=== PATIENT | female | born 1960 | race Caucasian/White ===

== ENCOUNTER → 2016-08-21 | Outpatient (CLI) | payer OTHER ==
[~2016-08-21] MED LIST: CA C1TAB26 PO; CPR500T PO; HYDR1TAB8 OP; METR500T PO; NITR-65 PO; PREMARIN 0.9 MG
--- NOTE | 2016-08-22 15:18 | Diagnostic Imaging Report ---
EXAMINATION: Bilateral screening mammogram with a Computer Aided Detection (CAD) system. INDICATION: Screening. PERSONAL HISTORY: No current complaints stated on the questionnaire. COMPARISON: 01/02/2007. FINDINGS: The breasts are composed of heterogeneously dense parenchyma which may decrease mammographic sensitivity. Asymmetry along the upper aspect of the right breast is likely related to summation artifact of parenchyma. The left breast demonstrates no definite focal lesion. No suspicious calcification is seen. IMPRESSION: Dense breasts. Asymmetry along the upper aspect of the right breast. Focal compression view and bilateral ultrasound evaluation would be recommended. ACR BI-RADS Category 0: Incomplete. (Needs additional imaging evaluation). Result letter will be mailed to the patient. Note: At least 10% of breast cancer is not imaged by mammography. Dictated by: Dictated on workstation # [id number]
== END ==
LOC: RAD 12:36
PROVIDERS: ATTEND Nurse Practitioner Family
DX: Z12.31 Encounter for screening mammogram for malignant neoplasm of breast (principal); R92.8 Other abnormal and inconclusive findings on diagnostic imaging of breast
CPT/HCPCS: 77067

== ENCOUNTER → 2017-01-02 | Outpatient (CLI) | payer OTHER ==
--- NOTE | 2017-01-02 20:06 | Diagnostic Imaging Report ---
Right breast diagnostic mammogram. The current study was also evaluated with a Computer Aided Detection (CAD) system. Tomography is also performed. INDICATION: Asymmetry in the upper aspect of the right breast. FINDINGS: The asymmetry is persistent with no definitive underlying mass seen on the tomography evaluation; however, there is dense background parenchyma which could obscure an underlying lesion. IMPRESSION: Indeterminate persistent asymmetry in the upper aspect of the right breast. Ultrasound evaluation pending. ACR BI-RADS Category 0: Incomplete. (Needs additional imaging evaluation). Result letter will be mailed to the patient. Note: At least 10% of breast cancer is not imaged by mammography. Dictated by: Dictated on workstation # [id number]
--- NOTE | 2017-01-02 20:35 | Diagnostic Imaging Report ---
EXAMINATION: Bilateral breast ultrasound. INDICATION: Dense breasts and an asymmetry in the upper aspect of the right breast. FINDINGS: The four quadrants and retroareolar region of each breast were scanned with no underlying abnormality seen, bilaterally. IMPRESSION: Negative study. The asymmetry along the upper aspect of the right breast could relate to summation artifact of parenchyma. Reevaluation with the mammography when the patient is due for her bilateral mammogram in August 2017 is recommended. ACR BI-RADS Category 3: Probably benign findings. Result letter will be mailed to the patient. Note: At least 10% of breast cancer is not imaged by mammography. Dictated by: Dictated on workstation # [id number]
== END ==
LOC: RAD 12:54
PROVIDERS: ATTEND Nurse Practitioner Family
DX: N64.89 Other specified disorders of breast (principal)

== ENCOUNTER → 2017-04-27 | Outpatient (CLI) | payer SELFPAY ==
[~2017-04-27] MED LIST changes: +GADOBUTROL 7.5 MMOL/7.5 ML (GADAVIST) VIAL IV ONE
--- NOTE | 2017-04-27 09:32 | Diagnostic Imaging Report ---
PROCEDURE: MR imaging of the brain with and without contrast. TECHNIQUE: Multiplanar, multisequence MR imaging of the brain was performed with and without contrast. INDICATION: Chronic headaches. No comparison is available. FINDINGS: The diffusion series demonstrates no evidence of restriction or findings of acute ischemia. There is no MR evidence of acute intracranial hemorrhage. There are several small foci of subcortical T2 hyperintense signal within the frontal white matter. There is no significant periventricular T2 signal abnormality. Findings are compatible with minimal microvascular changes. There is no intracranial mass effect or shift. There is no hydrocephalus. There is no abnormal extra-axial fluid collection. The basilar cisterns are patent. The posterior fossa is unremarkable. Postcontrast imaging demonstrates no MR evidence of pathologic intracranial enhancement. The pituitary gland and pineal region appear normal. There is normal alignment of the craniocervical junction. The mastoid air cells appear clear. The paranasal sinuses demonstrates minimal mucosal thickening in the ethmoids. Orbital contents unremarkable. Expected arterial and dural venous sinus flow voids appear preserved. IMPRESSION: 1. No MR evidence of an acute intracranial abnormality. There is no evidence of acute ischemia, hemorrhage, mass effect or hydrocephalus. There is no pathologic intracranial enhancement. 2. There are several scattered small T2 hyperintense foci within the subcortical white matter of the frontal lobes. This has a microvascular distribution. Correlation as to any known vascular risk factors such as diabetes, hypertension, smoking or migraine headaches appreciated. Dictated by: Dictated on workstation # [id number]
== END ==
LOC: RAD 07:52
PROVIDERS: ATTEND Nurse Practitioner Family
DX: R90.82 White matter disease, unspecified (principal)
CPT/HCPCS: 70553

== ENCOUNTER → 2018-09-19 | Outpatient (CLI) | payer OTHER ==
[~2018-09-19] MED LIST changes: -GADOBUTROL 7.5 MMOL/7.5 ML (GADAVIST) VIAL IV ONE
--- NOTE | 2018-09-20 07:53 | Diagnostic Imaging Report ---
Digital mammogram. Bilateral screening with 3-D tomosynthesis and CAD. The study was compared to prior exams of 08/21/2016. At this time there are no current complaints. The current study was also evaluated with a Computer Aided Detection (CAD) system. FINDINGS: The fibroglandular tissue in both breasts is heterogeneously dense. This does limit the sensitivity of this exam. Overall, there does not appear to have been any significant change when compared to the prior study. No primary or secondary sign of malignancy is noted. IMPRESSION: 1. There is no radiographic evidence for malignancy. 2. The patient should have her annual bilateral screening mammogram on schedule in September of 2019. ACR BI-RADS Category 1: Negative. Result letter will be mailed to the patient. Note: At least 10% of breast cancer is not imaged by mammography. Dictated by: Dictated on workstation # [id number]
== END ==
LOC: RAD 08:02
PROVIDERS: ATTEND Family Medicine
DX: Z12.31 Encounter for screening mammogram for malignant neoplasm of breast (principal)
CPT/HCPCS: 77067

== ENCOUNTER 2018-11-29 16:30 | Emergency (ER) | payer BC, OTHER ==
[~2018-11-29] VITALS: Ht 167.7 cm; Wt 56.6 kg
[2018-11-29] MEDS ORDERED: LIDOCAINE 1% INJ 20 ML 20 ML VIAL ONE (16:36)
[2018-11-29] MEDS ORDERED: LIDOCAINE 2% 20 ML (XYLOCAINE) VIAL INJ ONE (16:45)
[2018-11-29] MEDS ORDERED: LIDOCAINE 1% INJ 20 ML 20 ML VIAL INJ ONE (16:45)
[2018-11-29] MEDS ORDERED: LORazepam 0.5 MG (ATIVAN) TABLET ONE (16:55)
[2018-11-29] MEDS ORDERED: LORazepam 0.5 MG (ATIVAN) TABLET PO STA (17:27)
--- NOTE | 2018-11-29 17:33 | ED Upper Extremity ---
General Chief Complaint: Laceration Stated Complaint: L HAND FINGER LAC Nursing Triage Note: Patient brought to ER via wheelchair with complaint of left 2nd finger laceration. Patient states she got her finger in a circular saw just [employer]PERVIS[employer]. Patient is pale in color, nauseated and states she feels faint. Patient taken to ER room 9 and placed supine on bed. Patient able to answer all questions appropriately. Nursing Sepsis Screen: No Definite Risk Source: patient Exam Limitations: no limitations History of Present Illness Date Seen by Provider: Nov 29, 2018 Time Seen by Provider: 17:28 Initial Comments Circular saw injury to the left pointer and middle finger. Tetanus is up-to-date. This occurred just prior to arrival. Onset: just prior to arrival Severity: moderate Pain/Injury Location: left 2nd finger, left 3rd finger Modifying Factors: Worse With Movement Allergies and Home Medications Allergies Coded Allergies: morphine (Unverified Allergy, Mild, 03/28/09) No Known Drug Allergies (Verified , 10/13/07) Home Medications Cephalexin 500 Mg Capsule, 500 MG PO QID Prescribed by: KWAME VELEZ on 11/29/18 1734 Hydrocodone/Acetaminophen 1 Each Tablet, 1 TAB PO Q6H Prescribed by: KWAME VELEZ on 11/29/18 1734 Patient Home Medication List Home Medication List Reviewed: Yes Review of Systems Constitutional: see HPI EENTM: see HPI Respiratory: no symptoms reported Cardiovascular: no symptoms reported Genitourinary: no symptoms reported Musculoskeletal: see HPI Skin: no symptoms reported Psychiatric/Neurological: No Symptoms Reported Past Thsvops-Oulxsm-Xulxxq Hx Patient Social History Alcohol Use: Denies Use Recreational Drug Use: No Smoking Status: Never a Smoker 2nd Hand Smoke Exposure: No Recent Foreign Travel: No Contact w/Someone Who Travel: No Recent Infectious Disease Expo: No Recent Hopitalizations: Yes Immunizations Up To Date Tetanus Booster (TDap): Less than 5yrs PED Vaccines UTD: Yes Seasonal Allergies Seasonal Allergies: No Past Medical History Surgeries: Yes (HYSTERECTOMY,CHOLECYSTECTOMY) Bladder Surgery, Gallbladder, Hysterectomy, Tubal Ligation Respiratory: No Cardiac: No 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 oz. 58.624759lj; 20.00 BMI Method: General Appearance: WD/WN, no apparent distress HEENT: PERRL/EOMI, normal ENT inspection Respiratory: no respiratory distress, no accessory muscle use Shoulder: normal inspection, non-tender Elbow/Forearm: normal inspection, non-tender Wrist: Yes normal inspection Hand: Left, laceration (Laceration through the ulnar side of the distal phalanx thirds the width of the fingertip. The radial one third is intact and the distal flap of tissue does have capillary refill though somewhat slow. Discussed the case with Dr. Cordova, I'll states this back in place, she'll follow up on Saturday with Dr. Herron. There is an additional 0.5 cm laceration to the middle phalanx palmar surface left middle finger anesthetized locally with 1% lidocaine without epinephrine, closed with 3 simple interrupted sutures. The pointer finger laceration was closed with 10 simple a ruptured sutures, this was anesthetized locally with lidocaine without epinephrine, 5-0 simple interrupted sutures) Neurologic/Psychiatric: alert, normal mood/affect, oriented x 3 Skin: normal color, warm/dry Progress/Results/Core Measures Results/Orders My Orders Orders - KWAME VELEZ APRN Lidocaine 2% Injection 20 Ml (Xylocaine (11/29/18 16:45) Lidocaine 1% Inj 20 Ml (Xylocaine 1% Inj (11/29/18 16:45) Lidocaine 1% Inj 20 Ml (Xylocaine 1% Inj (11/29/18 16:36) Lorazepam Tablet (Ativan Tablet) (11/29/18 16:55) Lorazepam Tablet (Ativan Tablet) (11/29/18 17:27) Medications Given in ED Current Medications Medications Dose Ordered Sig/Ramya Route Start Time Stop Time Status Last Admin Dose Admin Lidocaine HCl 20 ml ONCE ONCE INJ 11/29/18 16:45 11/29/18 16:46 DC 11/29/18 17:00 20 ML Vital Signs/I&O 11/29/18 16:30 Temp 36.4 Pulse 74 Resp 24 B/P (MAP) 96/51 (66) Pulse Ox 99 O2 Delivery Room Air Blood Pressure Mean: 66 Departure Communication (Admissions) Wounds were covered with Xeroform and tube gauze. Impression Primary Impression: Fingertip laceration Disposition: 01 HOME, SELF-CARE Condition: Stable Departure-Patient Inst. Decision time for Depature: 17:31 Referrals: TRESA PITTS MD (PCP/Family) Primary Care Physician KULWINDER CORDOVA MD, MARK E DO Patient Instructions: Laceration Repair With Stitches (DC) Add. Discharge Instructions: 1. Go to [address] Saturday at [address] Cordova's nurse Sandrine on Saturday at 8 AM to tell her he wanted you to be seen at 1 PM on Saturday. Tell her you were in ER and we spoke directly with him. Phone number is [phone] 2. Keep the dressing on at all times until then. Keep it clean and dry. Antibiotics and pain medication as directed. Scripts Hydrocodone/Acetaminophen ([place] 5-325 Tablet) 1 Each Tablet 1 TAB PO Q6H for Pain MDD 10 TABS for 7 Days, #20 TAB Prov: KWAME VELEZ APRN 11/29/18 Cephalexin (Keflex) 500 Mg Capsule 500 MG PO QID, #28 CAP Prov: KWAME VELEZ APRN 11/29/18 Copy Copies To 1: KULWINDER CORDOVA MD; KRISTOFER HERRON PETER J APRN Nov 29, 2018 17:33
[2018-11-29] MEDS ORDERED: CEPH-507 PO (17:34)
[2018-11-29] MEDS ORDERED: HYDR-4226 PO (17:34)
[2018-11-29] MEDS ORDERED: RX-AMOX/CLAV. (AUGMENTIN) 500MG TAB PPK#2 PO STA (17:43)
[2018-11-29] MEDS ORDERED: RX-HYDROCODONE/APAP 5/325 MG #4 TAB PK PO PRN (17:45)
[2018-11-29] MEDS ORDERED: AUGMENTIN 875 MG TAB (AMOXICILLIN/CLAVULANATE) PO SCH (17:45)
[2018-11-29 18:07] VITALS: BP 132/71
--- NOTE | 2018-11-29 18:26 | Diagnostic Imaging Report ---
INDICATION: Finger injury. COMPARISON: None. EXAMINATION: Three views of the left second and third digits were obtained. FINDINGS: There has been amputation of the tuft of the second digit left hand. There is soft tissue injury of the third and second digits. No foreign body is seen. 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 No intra-articular involvement identified. Dictated by: Dictated on workstation # [id number]
== END 2018-11-29 18:10 | disposition home or self-care (01) ==
LOC: EDUNIT# 16:30 → ER 16:31
DX: S61.211A Laceration without foreign body of left index finger without damage to nail, initial encounter (principal); S61.213A Laceration without foreign body of left middle finger without damage to nail, initial encounter; Z98.51 Tubal ligation status; Z90.710 Acquired absence of both cervix and uterus; Z88.5 Allergy status to narcotic agent; W27.0XXA Contact with workbench tool, initial encounter
CPT/HCPCS: 12001; 73140

== ENCOUNTER → 2019-08-04 | Outpatient (CLI) | payer BC ==
[~2019-08-04] MED LIST changes: +CEPH-507 PO; +HYDR-4226 PO
--- NOTE | 2019-08-04 18:07 | Diagnostic Imaging Report ---
INDICATION: Left elbow swelling. TIME OF EXAM: 05:52 p.m. FINDINGS: Three views of the left elbow were obtained. Alignment is normal. Joint spaces are well maintained. No fracture, dislocation, or effusion is seen. IMPRESSION: No acute bony abnormality is identified. Dictated by: Dictated on workstation # [id number]
== END ==
LOC: RAD 16:55
PROVIDERS: ATTEND Nurse Practitioner Family
DX: M25.422 Effusion, left elbow (principal)
CPT/HCPCS: 73080

== ENCOUNTER 2019-08-14 08:00 | Outpatient (RCR) | payer BC ==
[~2019-08-14] VITALS: Ht 167.7 cm; Wt 60.9 kg
== END 2019-08-14 14:21 | disposition home or self-care (01) ==
LOC: PREOP 08:00
PROVIDERS: ATTEND Surgery
DX: Z01.812 Encounter for preprocedural laboratory examination (principal); Z11.59 Encounter for screening for other viral diseases; K58.9 Irritable bowel syndrome, unspecified; R19.7 Diarrhea, unspecified
CPT/HCPCS: 87635

== ENCOUNTER 2019-08-18 08:49 | Day surgery (SDC) | payer BC ==
[2019-08-18] MEDS ORDERED: LACTATED RINGERS 1,000 ML IV ONE (08:51)
[2019-08-18] MEDS ORDERED: LACTATED RINGERS 1,000 ML IV STA (08:56)
--- OUTSIDE RECORDS SUMMARY | 2019-08-18 08:58 | XMS REPORT ---
Author Author Pallavi Anderson Doctor Organization [facility] Address Unknown Phone Unavailable Care Team Providers Care Medical Radiation Dosimetrist Name Role Phone Migration, Doctor Unavailable Unavailable PROBLEMS Type Condition ICD9-CM Code PZO80-AT Code Onset Dates Condition S tatus SNOMED Code Problem Abnormality of right breast on screening mammogram R92.8 Active [id number] ALLERGIES No Information ENCOUNTERS Encounter Location Date Diagnosis [facility] [address] [address] Oct, [facility] [address] [address] Sep, Well woman exam with routine gynecologic al exam Z01.419 ; Screening for breast cancer Z12.31 and Screening for osteoporosis Z13.820 [facility] [address] [address] Aug, Overweight E66.3 [facility] [address] [id number] July, Dental examination Z01.20 [facility] [address] [address] July, Overweight E66.3 [facility] [address] [address] Jun, Overweight E66.3 [facility] [address] [address] Jun, [facility] [address] [address] Jun, [facility] [address] [address] Jun, [facility] [address] [address] Apr, [facility] [address] [address] Apr, New onset headache R51 [facility] [address] [address] Apr, New onset headache R51 [facility] [address] [address] 24 Dec, 2016 [facility] [address] [address] Dec, Right ankle swelling M25.471 [place] [address] [address] 28 Nov, 2016 Abnormality of right breast on screening mammogram R92.8 [place] [address] [address] 26 Nov, 2016 Encounter for immunization Z23 ; Right a nkle swelling M25.471 ; Epigastric pain R10.13 ; Lower abdominal pain R10.30 and Abnormality of right breast on screening mammogram R92.8 [facility] [address] [id number] Oct, Dental caries K02.9 [place] [address] [address] Aug, Abnormality of right breast on screening mammogram R92.8 [facility] [address] [id number] July, Dental examination Z01.20 [facility] [address] [address] July, [facility] [address] [address] July, General medical exam Z00.00 ; Routine gy necological examination Z01.419 ; Screening breast examination Z12.39 and Abdominal fullness R19.8 [facility] [address] [id number] May, Encounter for dental examination Z01.20 [place] [address] [address] Apr, General medical exam Z00.00 ; Need for i mmunization with diphtheria, tetanus, and poliovirus vaccine Z23 ; Acute non-recurrent maxillary sinusitis J01.00 ; Pain of left sacroiliac joint M53.3 ; Upper respiratory tract infection, unspecified type J06.9 and Encounter for immunization Z23 [facility] [address] [id number] [place] [id number] Oct, Dental examination Z01.20 and Dental car ies K02.9 [place] [address] [address] Jun, Encounter for gynecological examination Z01.419 and Screening breast examination Z12.39 [place] [address] [address] May, Irritable bowel syndrome without diarrhe a K58.9 [place] [address] [address] May, General medical exam Z00.00 and Right fo ot pain M79.671 [place] [address] [address] May, General medical exam Z00.00 and Right fo ot pain M79.671 [place] [address] [address] Dec, Allergic rhinitis J30.9 ; Encounter for immunization Z23 and Right foot pain M79.671 [place] [address] [address] Jun, [place] [address] [address] Jun, [place] [address] [address] Jan, [place] [address] [address] Jan, [place] [address] [place] [address] Dec, [facility] [address] [facility] [id number] [place] [address] Dec, [facility] [address] [id number] [place] [address] July, [facility] [address] [id number] [place] [address] Jun, [facility] [address] [id number] [place] [address] Jun, [facility] [address] [id number] [place] [address] Jun, [facility] [address] [id number] [place] [address] Jun, [facility] [address] [id number] [place] [address] Jun, [facility] [address] [id number] [place] [address] May, [facility] [address] [id number] [place] [address] May, [facility] [address] [id number] [place] [address] Jan, [facility] [address] [id number] [place] [address] Jan, [facility] [address] [id number] [place] [address] Jan, [facility] [address] [id number] [place] [address] Jan, [facility] [address] [id number] [place] [address] Jan, [facility] [address] [id number] [place] [address] Jan, [facility] [address] [id number] [place] [address] Jan, [facility] [address] [id number] [place] [address] Jan, [facility] [address] [id number] [place] [address] Jan, [facility] [address] [id number] [place] [address] Jan, [facility] [address] [id number] [place] [address] Jan, [facility] [address] [id number] [place] [address] Jan, [facility] [address] [id number] [place] [address] Jan, [facility] [address] [id number] [place] [address] Dec, [facility] [address] [place] [id number] [place] [address] Aug, [facility] [address] [id number] [place] [address] Mar, [facility] [address] [id number] [place] [address] Feb, [facility] [address] [place] [id number] [place] [address] Feb, [facility] [address] [place] [id number] [place] [address] Feb, [facility] [address] [id number] [place] [address] 21 Feb, 2012 [facility] [address] [id number] [place] [address] 18 Feb, 2012 [facility] [address] [place] [id number] [place] [address] 17 Feb, 2012 [facility] [address] [id number] [place] [address] 17 Feb, 2012 [facility] [address] [id number] [place] [address] Sep, [facility] [address] [place] [id number] [place] [address] Sep, [facility] [address] [place] [id number] [place] [address] Sep, [facility] [address] [place] [id number] [place] [address] May, [facility] [address] [place] [id number] [place] [address] May, [facility] [address] [place] [id number] [place] [address] May, [facility] [address] [place] [id number] [place] [address] Apr, [facility] [address] [place] [id number] [place] [address] Apr, [facility] [address] [place] [id number] [place] [address] Mar, [facility] [address] [place] [id number] [place] [address] Mar, [facility] [address] [place] [id number] [place] [address] Mar, [facility] [address] [place] [id number] [place] [address] Mar, [facility] [address] [place] [id number] [place] [address] Jan, [facility] [address] [place] [id number] [place] [address] Dec, [facility] [address] [place] [id number] [place] [address] Dec, [facility] [address] [place] [id number] [place] [address] Dec, IMMUNIZATIONS No Known Immunizations SOCIAL HISTORY Never Assessed REASON FOR VISIT PLAN OF CARE VITAL SIGNS MEDICATIONS Unknown Medications RESULTS No Results PROCEDURES No Known procedures INSTRUCTIONS MEDICATIONS ADMINISTERED No Known Medications MEDICAL (GENERAL) HISTORY Type Description Date Medical History pancreatitis Medical History diverticulitis Medical History Herpes simplex Viral Warts Medical History Unspecified hepatitis Surgical History Hysterectomy Surgical History Bladder sling/repair Surgical History Cholecysectomy Surgical History Colonoscopy told to repeat in 10 years 2 012 Hospitalization History Diverticulitis hospitalized x 1 week 12/2007
--- OUTSIDE RECORDS SUMMARY | 2019-08-18 08:58 | XMS REPORT ---
Author Author Pallavi Anderson Doctor Organization [facility] Address Unknown Phone Unavailable Care Team Providers Care Performance Improvement Consultant Name Role Phone Migration, Doctor Unavailable Unavailable PROBLEMS Type Condition ICD9-CM Code GIZ02-DT Code Onset Dates Condition S tatus SNOMED Code Problem Abnormality of right breast on screening mammogram R92.8 Active [id number] ALLERGIES No Information ENCOUNTERS Encounter Location Date Diagnosis [facility] [address] [facility] [id number] [address] [place] [address] Oct, [facility] [address] [facility] [id number] [address] [place] [address] Sep, Well woman exam with routine gynecological exam Z01.419 ; Screening for breast cancer Z12.31 and Screening for osteoporosis Z13.820 [facility] [address] [facility] [id number] [address] [place] [address] Aug, Overweight E66.3 [facility] [address] [facility] [id number] [address] [place] [id number] July, Dental examination Z01.20 [facility] [address] [facility] [id number] [address] [place] [address] July, Overweight E66.3 [facility] [address] [facility] [id number] [address] [place] [address] Jun, Overweight E66.3 [facility] [address] [facility] [id number] [address] [place] [address] Jun, [facility] [address] [facility] [id number] [address] [place] [address] Jun, [facility] [address] [facility] [id number] [address] [place] [address] Jun, [facility] [address] [place] [id number] [address] [place] [address] Apr, [facility] [address] [id number] [address] [place] [address] Apr, New onset headache R51 [facility] [address] [id number] [address] [place] [address] Apr, New onset headache R51 [facility] [address] [id number] [address] [place] [address] Dec, [facility] [address] [id number] [address] [place] [address] Dec, Right ankle swelling M25.471 [facility] [address] [id number] [address] [place] [address] 28 Nov, 2016 Abnormality of right breast on screening mammogram R92.8 [place] [address] [id number] [address] [place] [address] 26 Nov, 2016 Encounter for immunization Z 23 ; Right ankle swelling M25.471 ; Epigastric pain R10.13 ; Lower abdominal pain R10.30 and Abnormality of right breast on screening mammogram R92.8 [facility] [address] [id number] [address] [place] [id number] Oct, Dental caries K02.9 [facility] [address] [id number] [address] [place] [address] Aug, Abnormality of right breast on screening mammogram R92.8 [facility] [address] [id number] [address] [place] [id number] July, Dental examination Z01.20 [facility] [address] [id number] [address] [place] [address] July, [facility] [address] [id number] [address] [place] [address] July, General medical exam Z00.00 ; Routine gynecological examination Z01.419 ; Screening breast examination Z12.39 and Abdominal fullness R19.8 [facility] [address] [id number] [address] [place] [address] [id number] May, Encounter for dental examina tion Z01.20 [facility] [address] [facility] [id number] [address] [place] [address] Apr, General medical exam Z00.00 ; Need for immunization with diphtheria, tetanus, and poliovirus vaccine Z23 ; Acute non-recurrent maxillary sinusitis J01.00 ; Pain of left sacroiliac joint M53.3 ; Upper respiratory tract infection, unspecified type J06.9 and Encounter for immunization Z23 [facility] [address] [id number] [address] [place] [address] [id number] Oct, Dental examination Z01.20 an d Dental caries K02.9 [facility] [address] [facility] [id number] [address] [place] [address] Jun, Encounter for gynecological examination Z01.419 and Screening breast examination Z12.39 [place] [address] [facility] [id number] [address] [place] [address] May, Irritable bowel syndrome wit hout diarrhea K58.9 [place] [address] [facility] [id number] [address] [place] [address] May, General medical exam Z00.00 and Right foot pain M79.671 [place] [address] [place] [id number] [address] [place] [address] 17 May, 2015 General medical exam Z00.00 and Right foot pain M79.671 [place] [id number] [facility] [id number] [address] [place] [address] Dec, Allergic rhinitis J30.9 ; En counter for immunization Z23 and Right foot pain M79.671 [facility] [address] [facility] [id number] [address] [place] [address] 14 Jun, 2014 [place] [address] [facility] [id number] [address] [place] [address] Jun, [facility] [address] [id number] [address] [place] [address], [place] [phone] Jan, [facility] [address] [id number] [address] [place] [address], [place] [phone] Jan, [facility] [address] [id number] [address] [place] [address], [place] [phone] Dec, [facility] [address] [id number] [address] [place] [address], [place] [phone] Dec, [facility] [address] [id number] [address] [place] [address], [place] [phone] July, [facility] [address] [id number] [address] [place] [address], [place] [phone] Jun, [facility] [address] [id number] [address] [place] [address], [place] [phone] Jun, [facility] [address] [id number] [address] [place] [address], [place] [phone] Jun, [facility] [address] [id number] [address] [place] [address], [place] [phone] Jun, [facility] [address] [id number] [address] [place] [address], [place] [phone] Jun, [facility] [address] [id number] [address] [place] [address], [place] [phone] May, [facility] [address] [id number] [address] [place] [address], [place] [phone] May, [facility] [address] [id number] [address] [place] [address], [place] [phone] Jan, [facility] [address] [id number] [address] [place] [address], [place] [phone] Jan, [facility] [address] [id number] [address] [place] [address], [place] [phone] Jan, [facility] [address] [id number] [address] [place] [address], [place] [phone] Jan, [facility] [address] [id number] [address] [place] [address], [place] [phone] Jan, [facility] [address] [id number] [address] [place] [address], [place] [phone] Jan, [facility] [address] [id number] [address] [place] [address], [place] [phone] Jan, [facility] [address] [id number] [address] [place] [address], [place] [phone] Jan, [facility] [address] [id number] [address] [place] [address], [place] [phone] Jan, [facility] [address] [id number] [address] [place] [address], [place] [phone] Jan, [facility] [address] [id number] [address] [place] [address], [place] [phone] Jan, [facility] [address] [id number] [address] [place] [address], [place] [phone] Jan, [facility] [address] [id number] [address] [place] [address], [place] [phone] Jan, [facility] [address] [id number] [address] [place] [address], [place] [phone] Dec, [facility] [address] [id number] [address] [place] [address], [place] [phone] Aug, [facility] [address] [id number] [address] [place] [address], [place] [phone] Mar, [facility] [address] [id number] [address] [place] [address], [place] [phone] Feb, [facility] [address] [id number] [address] [place] [address], [place] [phone] Feb, [facility] [address] [id number] [address] [place] [address], [place] [phone] Feb, [facility] [address] [id number] [address] [place] [address], [place] [phone] Feb, [facility] [address] [id number] [address] [place] [address], [place] [phone] Feb, [facility] [address] [id number] [address] [place] [address], [place] [phone] Feb, [facility] [address] [id number] [address] [place] [address], [place] [phone] Feb, [facility] [address] [id number] [address] [place] [address], [place] [phone] Sep, [facility] [address] [id number] [address] [place] [address], [place] [phone] Sep, [facility] [address] [id number] [address] [place] [address], [place] [phone] Sep, [facility] [address] [id number] [address] [place] [address], [place] [phone] May, [facility] [address] [id number] [address] [place] [address], [place] [phone] May, [facility] [address] [id number] [address] [place] [address], [place] [phone] May, [facility] [address] [id number] [address] [place] [address], [place] [phone] Apr, [facility] [address] [id number] [address] [place] [address], [place] [phone] Apr, [facility] [address] [id number] [address] [place] [address], [place] [phone] Mar, [facility] [address] [id number] [address] [place] [address], [place] [phone] Mar, [facility] [address] [id number] [address] [place] [address], [place] [phone] Mar, [facility] [address] [id number] [address] [place] [address], [place] [phone] Mar, [facility] [address] [id number] [address] [place] [address] Jan, [facility] [address] [facility] [id number] [address] [place] [id number] Dec, [facility] [address] [facility] [id number] [address] [place] [address] Dec, [facility] [address] [facility] [id number] [address] [place] [address] Dec, IMMUNIZATIONS No Known Immunizations SOCIAL HISTORY Never Assessed REASON FOR VISIT PLAN OF CARE VITAL SIGNS Weight 135.38 lbs 2011-09-17 Temperature 98.6 degrees Fahrenheit 2011-09-17 Heart Rate 68 bpm 2011-09-17 Respiratory Rate 16 2011-09-17 Blood pressure systolic 110 mmHg 2011-09-17 Blood pressure diastolic 76 mmHg 2011-09-17 MEDICATIONS Unknown Medications RESULTS No Results PROCEDURES Procedure Date Ordered Result Body Site RHEUMATOID FACTOR, QUANT September 17, 2011 VENIPUNCT, ROUTINE* September 17, 2011 INSTRUCTIONS MEDICATIONS ADMINISTERED No Known Medications MEDICAL [...]
--- OUTSIDE RECORDS SUMMARY | 2019-08-18 08:58 | XMS REPORT ---
Author Author Pallavi Anderson Doctor Organization [facility] Address Unknown Phone Unavailable Care Team Providers Care Special Programs Director Name Role Phone Migration, Doctor Unavailable Unavailable PROBLEMS Type Condition ICD9-CM Code CWW65-AO Code Onset Dates Condition S tatus SNOMED Code Problem Abnormality of right breast on screening mammogram R92.8 Active [id number] ALLERGIES No Information ENCOUNTERS Encounter Location Date Diagnosis [facility] [address] [address] Oct, [facility] [address] [address] Sep, Well woman exam with routine gynecologic al exam Z01.419 ; Screening for breast cancer Z12.31 and Screening for osteoporosis Z13.820 [facility] [address] [address] Aug, Overweight E66.3 [facility] [address] [id number] July, Dental examination Z01.20 [facility] [address] [address] July, Overweight E66.3 [facility] [address] [address] Jun, Overweight E66.3 [facility] [address] [address] Jun, [facility] [address] [address] Jun, [facility] [address] [address] Jun, [facility] [address] [address] Apr, [facility] [address] [address] Apr, New onset headache R51 [facility] [address] [address] Apr, New onset headache R51 [facility] [address] [address] 24 Dec, 2016 [facility] [address] [address] Dec, Right ankle swelling M25.471 [place] [address] [address] 28 Nov, 2016 Abnormality of right breast on screening mammogram R92.8 [place] [address] [address] 26 Nov, 2016 Encounter for immunization Z23 ; Right a nkle swelling M25.471 ; Epigastric pain R10.13 ; Lower abdominal pain R10.30 and Abnormality of right breast on screening mammogram R92.8 [facility] [address] [id number] Oct, Dental caries K02.9 [place] [address] [address] Aug, Abnormality of right breast on screening mammogram R92.8 [facility] [address] [id number] July, Dental examination Z01.20 [facility] [address] [address] July, [facility] [address] [address] July, General medical exam Z00.00 ; Routine gy necological examination Z01.419 ; Screening breast examination Z12.39 and Abdominal fullness R19.8 [facility] [address] [id number] May, Encounter for dental examination Z01.20 [place] [address] [address] Apr, General medical exam Z00.00 ; Need for i mmunization with diphtheria, tetanus, and poliovirus vaccine Z23 ; Acute non-recurrent maxillary sinusitis J01.00 ; Pain of left sacroiliac joint M53.3 ; Upper respiratory tract infection, unspecified type J06.9 and Encounter for immunization Z23 [facility] [address] [facility] [place] [id number] Oct, Dental examination Z01.20 and Dental car ies K02.9 [place] [address] [address] Jun, Encounter for gynecological examination Z01.419 and Screening breast examination Z12.39 [place] [address] [address] May, Irritable bowel syndrome without diarrhe a K58.9 [place] [address] [address] May, General medical exam Z00.00 and Right fo ot pain M79.671 [place] [address] [address] May, General medical exam Z00.00 and Right fo ot pain M79.671 [place] [address] [address] Dec, Allergic rhinitis J30.9 ; Encounter for immunization Z23 and Right foot pain M79.671 [place] [address] [address] Jun, [place] [address] [address] Jun, [place] [address] [address] Jan, [place] [address] [address] Jan, [place] [address] [place] [address] Dec, [facility] [address] [facility] [id number] [place] [address] Dec, [facility] [address] [id number] [place] [address] July, [facility] [address] [id number] [place] [address] Jun, [facility] [address] [id number] [place] [address] Jun, [facility] [address] [id number] [place] [address] Jun, [facility] [address] [id number] [place] [address] Jun, [facility] [address] [id number] [place] [address] Jun, [facility] [address] [id number] [place] [address] May, [facility] [address] [id number] [place] [address] May, [facility] [address] [id number] [place] [address] Jan, [facility] [address] [id number] [place] [address] Jan, [facility] [address] [id number] [place] [address] Jan, [facility] [address] [id number] [place] [address] Jan, [facility] [address] [id number] [place] [address] Jan, [facility] [address] [id number] [place] [address] Jan, [facility] [address] [id number] [place] [address] Jan, [facility] [address] [id number] [place] [address] Jan, [facility] [address] [id number] [place] [address] Jan, [facility] [address] [id number] [place] [address] Jan, [facility] [address] [id number] [place] [address] Jan, [facility] [address] [id number] [place] [address] Jan, [facility] [address] [id number] [place] [address] Jan, [facility] [address] [id number] [place] [address] Dec, [facility] [address] [place] [id number] [place] [address] Aug, [facility] [address] [id number] [place] [address] Mar, [facility] [address] [id number] [place] [address] Feb, [facility] [address] [place] [id number] [place] [address] Feb, [facility] [address] [place] [id number] [place] [address] Feb, [facility] [address] [id number] [place] [address] 21 Feb, 2012 [facility] [address] [id number] [place] [address] 18 Feb, 2012 [facility] [address] [place] [id number] [place] [address] 17 Feb, 2012 [facility] [address] [id number] [place] [address] 17 Feb, 2012 [facility] [address] [id number] [place] [address] Sep, [facility] [address] [id number] [place] [address] Sep, [facility] [address] [place] [id number] [place] [address] Sep, [facility] [address] [id number] [place] [address] May, [facility] [address] [place] [id number] [place] [address] May, [facility] [address] [place] [id number] [place] [address] May, [facility] [address] [place] [id number] [place] [address] Apr, [facility] [address] [place] [id number] [place] [address] Apr, [facility] [address] [place] [id number] [place] [address] Mar, [facility] [address] [place] [id number] [place] [address] Mar, [facility] [address] [id number] [place] [address] Mar, [facility] [address] [id number] [place] [address] Mar, [facility] [address] [id number] [place] [address] Jan, [facility] [address] [id number] [place] [address] Dec, [facility] [address] [id number] [place] [address] Dec, [facility] [address] [id number] [place] [address] Dec, IMMUNIZATIONS No Known Immunizations SOCIAL HISTORY Never Assessed REASON FOR VISIT PLAN OF CARE VITAL SIGNS Height 66 in 2013-07-13 Weight 130.7 lbs 2013-07-13 Temperature 98.2 degrees Fahrenheit 2013-07-13 Heart Rate 72 bpm 2013-07-13 Respiratory Rate 14 2013-07-13 Blood pressure systolic 130 mmHg 2013-07-13 Blood pressure diastolic 78 mmHg 2013-07-13 MEDICATIONS Unknown Medications RESULTS No Results PROCEDURES [...]
--- OUTSIDE RECORDS SUMMARY | 2019-08-18 08:58 | XMS REPORT ---
Author Author Pallavi LUTZ Organization [facility] Address [address] [place] [address] Care Team Providers Care Gambreler Helper Name Role Phone DAWIT LUTZ Unavailable PROBLEMS Type Condition ICD9-CM Code IRO06-NP Code Onset Dates Condition S tatus SNOMED Code Problem Abnormality of right breast on screening mammogram R92.8 Active [id number] ALLERGIES No Information ENCOUNTERS Encounter Location Date Diagnosis [facility] [address] [facility] [id number] [address] [place] [phone] Oct, [facility] [address] [facility] [id number] [address] [place] [phone] Sep, Well woman exam with routine gynecological exam Z01.419 ; Screening for breast cancer Z12.31 and Screening for osteoporosis Z13.820 [facility] [address] [facility] [id number] [address] [place] [phone] Aug, Overweight E66.3 [facility] [address] [facility] [id number] [address] [place] [phone] July, Dental examination Z01.20 [facility] [address] [facility] [id number] [address] [place] [phone] July, Overweight E66.3 [facility] [address] [facility] [id number] [address] [place] [id number] Jun, Overweight E66.3 [facility] [address] [facility] [id number] [address] [place] [id number] Jun, [facility] [address] [facility] [id number] [address] [place] [id number] Jun, [facility] [address] [facility] [id number] [address] [place] [id number] Jun, [facility] [address] [id number] [address] [place] [id number] Apr, [facility] [address] [id number] [address] [place] [phone] Apr, New onset headache R51 [facility] [address] [id number] [address] [place] [phone] Apr, New onset headache R51 [facility] [address] [id number] [address] [place] [phone] Dec, [facility] [address] [id number] [address] [place] [id number] Dec, Right ankle swelling M25.471 [facility] [address] [id number] [address] [place] [id number] 28 Nov, 2016 Abnormality of right breast on screening mammogram R92.8 [facility] [address] [facility] [id number] [address] [place] [phone] 26 Nov, 2016 Encounter for immunization Z 23 ; Right ankle swelling M25.471 ; Epigastric pain R10.13 ; Lower abdominal pain R10.30 and Abnormality of right breast on screening mammogram R92.8 [facility] [address] [id number] [address] [place] [id number] Oct, Dental caries K02.9 [facility] [address] [id number] [address] [place] [id number] Aug, Abnormality of right breast on screening mammogram R92.8 [facility] [address] [id number] [address] [place] [phone] July, Dental examination Z01.20 [facility] [address] [id number] [address] [place] [phone] July, [facility] [address] [facility] [id number] [address] [place] [phone] July, General medical exam Z00.00 ; Routine gynecological examination Z01.419 ; Screening breast examination Z12.39 and Abdominal fullness R19.8 [facility] [address] [id number] [address] [place] [phone] May, Encounter for dental examina tion Z01.20 [facility] [address] [id number] [address] [place] [phone] Apr, General medical exam Z00.00 ; Need for immunization with diphtheria, tetanus, and poliovirus vaccine Z23 ; Acute non-recurrent maxillary sinusitis J01.00 ; Pain of left sacroiliac joint M53.3 ; Upper respiratory tract infection, unspecified type J06.9 and Encounter for immunization Z23 [facility] [address] [id number] [address] [place] [address] [phone] Oct, Dental examination Z01.20 an d Dental caries K02.9 [facility] [address] [facility] [id number] [address] [place] [phone] Jun, Encounter for gynecological examination Z01.419 and Screening breast examination Z12.39 [facility] [address] [id number] [address] [place] [id number] May, Irritable bowel syndrome wit hout diarrhea K58.9 [facility] [address] [id number] [address] [place] [id number] May, General medical exam Z00.00 and Right foot pain M79.671 [facility] [address] [id number] [address] [place] [phone] 17 May, 2015 General medical exam Z00.00 and Right foot pain M79.671 [facility] [address] [id number] [address] [place] [phone] Dec, Allergic rhinitis J30.9 ; En counter for immunization Z23 and Right foot pain M79.671 [facility] [address] [id number] [address] [place] [phone] [id number] Jun, 2014 [facility] [address] [facility] [id number] [address] [place] [phone] Jun, [facility] [address] [id number] [address] [place] [address], [place] [phone] Jan, [facility] [address] [id number] [address] [place] [address], [place] [phone] Jan, [facility] [address] [id number] [address] [place] [address], [place] [phone] Dec, [facility] [address] [id number] [address] [place] [address], [place] [phone] Dec, [facility] [address] [id number] [address] [place] [address], [place] [phone] July, [facility] [address] [id number] [address] [place] [address], [place] [phone] Jun, [facility] [address] [id number] [address] [place] [address], [place] [phone] Jun, [facility] [address] [id number] [address] [place] [address], [place] [phone] Jun, [facility] [address] [id number] [address] [place] [address], [place] [phone] Jun, [facility] [address] [id number] [address] [place] [address], [place] [phone] Jun, [facility] [address] [id number] [address] [place] [address], [place] [phone] May, [facility] [address] [id number] [address] [place] [address], [place] [phone] May, [facility] [address] [id number] [address] [place] [address], [place] [phone] Jan, [facility] [address] [id number] [address] [place] [address], [place] [address] Jan, [facility] [address] [id number] [address] [place] [address], [place] [phone] Jan, [facility] [address] [id number] [address] [place] [address], [place] [phone] 12 Jan, 2013 [facility] [address] [id number] [address] [place] [address], [place] [phone] Jan, [facility] [address] [id number] [address] [place] [address], [place] [phone] 08 Jan, 2013 [facility] [address] [id number] [address] [place] [address], [place] [phone] 07 Jan, 2013 [facility] [address] [id number] [address] [place] [address], [place] [address] Jan, [facility] [address] [id number] [address] [place] [address], [place] [phone] Jan, [facility] [address] [id number] [address] [place] [address], [place] [phone] Jan, [facility] [address] [id number] [address] [place] [address], [place] [phone] Jan, [facility] [address] [id number] [address] [place] [address], [place] [address] Jan, [facility] [address] [id number] [address] [place] [address], [place] [phone] Jan, [facility] [address] [id number] [address] [place] [address], [place] [address] Dec, [facility] [address] [id number] [address] [place] [address], [place] [address] Aug, [facility] [address] [id number] [address] [place] [address], [place] [phone] Mar, [facility] [address] [id number] [address] [place] [address], [place] [address] Feb, [facility] [address] [id number] [address] [place] [address], [place] [phone] Feb, [facility] [address] [id number] [address] [place] [address], [place] [address] Feb, [facility] [address] [id number] [address] [place] [address], [place] [phone] Feb, [facility] [address] [id number] [address] [place] [address], [place] [phone] Feb, [facility] [address] [id number] [address] [place] [address], [place] [address] Feb, [facility] [address] [id number] [address] [place] [address], [place] [address] Feb, [facility] [address] [id number] [address] [place] [address], [place] [id number] Sep, [facility] [address] [id number] [address] [place] [address], [place] [address] Sep, [facility] [address] [id number] [address] [place] [address], [place] [address] Sep, [facility] [address] [id number] [address] [place] [address], [place] [address] May, [facility] [address] [id number] [address] [place] [address], [place] [address] May, [facility] [address] [id number] [address] [place] [address], [place] [address] May, [facility] [address] [id number] [address] [place] [address], [place] [address] Apr, [facility] [address] [id number] [address] [place] [address], [place] [address] Apr, [facility] [address] [id number] [address] [place] [address], [place] [address] Mar, [facility] [address] [id number] [address] [place] [address], [place] [address] Mar, [facility] [address] [id number] [address] [place] [address], [place] [address] Mar, [facility] [address] [id number] [address] [place] [phone] Mar, [facility] [address] [facility] [id number] [address] [place] [phone] Jan, [facility] [address] [facility] [id number] [address] [place] [id number] Dec, [facility] [address] [facility] [id number] [address] [place] [id number] Dec, [facility] [address] [facility] [id number] [address] [place] [phone] Dec, IMMUNIZATIONS No Known Immunizations SOCIAL HISTORY Never Assessed REASON FOR VISIT PLAN OF CARE VITAL SIGNS Height 66 in 2012-09-06 Weight 124.32 lbs 2012-09-06 Temperature 98.2 degrees Fahrenheit 2012-09-06 Heart Rate 65 bpm 2012-09-06 Respiratory Rate 18 2012-09-06 Blood pressure systolic 100 mmHg 2012-09-06 Blood pressure diastolic 70 mmHg 2012-09-06 MEDICATIONS Unknown Medications RESULTS No Results PROCEDURES [...]
--- OUTSIDE RECORDS SUMMARY | 2019-08-18 09:00 | XMS REPORT | Continuity of Care Document ---
Demographics Preferred Language Unknown Marital Status Unknown Worship Affiliation Unknown Race Unknown Ethnic Group Unknown Author Organization Unknown Address Unknown Phone Unavailable Allergies Active Description Code Type Severity Reaction Onset Reported/Identified Relationship to Patient Clinical Status Yes No Known Drug Allergies [id number] Drug Allergy Unknown N/A 10/13/2007 Yes morphine [id number] Drug Allergy Mild N/A 03/28/2009 Yes morphine Drug Allergy 05/15/2011 Yes morphine Drug Allergy N/A N/A 05/15/2011 Medications There is no data. Problems Date Dx Coded Attending Type Code Diagnosis Diagnosed By 02/15/1420 BARRY RAE DO Ot K58. 9 IRRITABLE BOWEL SYNDROME WITHOUT DIARRHE 02/15/1420 BARRY RAE DO Ot R19. 7 DIARRHEA, UNSPECIFIED 02/15/1420 BARRY RAE DO Ot Z01.812 ENCOUNTER FOR PREPROCEDURAL LABORATORY E 02/15/1420 BARRY RAE DO Ot Z11. 59 ENCOUNTER FOR SCREENING FOR OTHER VIRAL 04/12/2009 V74.1 Scre ening Examination For Pulmonary Tuberculosis 04/12/2009 ASHLEY MAYS DO K V74.1 Screening Examination For Pulmonary Tuberculosis 04/12/2009 DAWIT LUTZ APRN V7 4.1 Screening Examination For Pulmonary Tuberculosis 04/12/2009 DEMETRIA MAYS DOA K V74.1 Screening Examination For Pulmonary Tuberculosis 04/12/2009 DEMETRIA MAYS DOA K V74.1 Screening Examination For Pulmonary Tuberculosis 04/12/2009 DEMETRIA MAYS DOA K V74.1 Screening Examination For Pulmonary Tuberculosis 04/12/2009 DAVON DUMONT ASHLEY K V74.1 Screening Examination For Pulmonary Tuberculosis 04/12/2009 DAVON DUMONT ASHLEY K V74.1 Screening Examination For Pulmonary Tuberculosis 04/12/2009 SHO WATTERS DDS V7 4.1 Screening Examination For Pulmonary Tuberculosis 12/19/2010 789.00 Abd ominal Pain Unspecified Site 12/19/2010 DEMETRIA MAYS DOA K 789.00 Abdominal Pain Unspecified Site 12/19/2010 DAWIT LUTZ APRN 789.00 Abdominal Pain Unspecified Site 12/19/2010 MAYS DO, ASHLEY K 789.00 Abdominal Pain Unspecified Site 12/19/2010 AMYS DO, ASHLEY K 789.00 Abdominal Pain Unspecified Site 12/19/2010 MAYS DO, ASHLEY K 789.00 Abdominal Pain Unspecified Site 12/19/2010 MASY DO, ASHLEY K 789.00 Abdominal Pain Unspecified Site 12/19/2010 MAYS DO, ASHLEY K 789.00 Abdominal Pain Unspecified Site 12/19/2010 WATTERS DDS, SHO 789.00 Abdominal Pain Unspecified Site 12/23/2010 Ot 268.9 RICHARD MIN D DEFICIENCY NOS 12/23/2010 Ot 562.11 DIV ERTICULITIS COLON (W/O MENT OF HEMORR 12/23/2010 Ot 784.0 HEAD ACHE 01/01/2011 110.1 DERM ATOPHYTOSIS OF NAIL 01/01/2011 562.10 DIV ERTICULOSIS OF COLON (WITHOUT HEMORRHAGE) 01/01/2011 V72.31 CONFIGURATION ENGINEER EXAM, ROUTINE 01/01/2011 MAYS DO, ASHLEY K 110.1 DERMATOPHYTOSIS OF NAIL 01/01/2011 MAYS DO, ASHLEY K 562.10 DIVERTICULOSIS OF COLON (WITHOUT HEMORRHAGE) 01/01/2011 MAYS DO, ASHLEY K V72.31 CONFIGURATION ENGINEER EXAM, ROUTINE 01/01/2011 DAWIT LUTZ APRN 11 0.1 DERMATOPHYTOSIS OF NAIL 01/01/2011 DAWIT LUTZ APRN 562.10 DIVERTICULOSIS OF COLON (WITHOUT HEMORRHAGE) 01/01/2011 DAWIT LUTZ APRN V72.31 CONFIGURATION ENGINEER EXAM, ROUTINE 01/01/2011 MAYS DO, ASHLEY K 110.1 DERMATOPHYTOSIS OF NAIL 01/01/2011 MAYS DO, ASHLEY K 562.10 DIVERTICULOSIS OF COLON (WITHOUT HEMORRHAGE) 01/01/2011 MAYS DO, ASHLEY K V72.31 CONFIGURATION ENGINEER EXAM, ROUTINE 01/01/2011 MAYS DO, ASHLEY K 110.1 DERMATOPHYTOSIS OF NAIL 01/01/2011 MAYS DO, ASHLEY K 562.10 DIVERTICULOSIS OF COLON (WITHOUT HEMORRHAGE) 01/01/2011 MAYS DO, ASHLEY K V72.31 CONFIGURATION ENGINEER EXAM, ROUTINE 01/01/2011 MAYS DO, ASHLEY K 110.1 DERMATOPHYTOSIS OF NAIL 01/01/2011 MAYS DO, ASHLEY K 562.10 DIVERTICULOSIS OF COLON (WITHOUT HEMORRHAGE) 01/01/2011 MAYS DO, ASHLEY K V72.31 CONFIGURATION ENGINEER EXAM, ROUTINE 01/01/2011 MAYS DO, ASHLEY K 110.1 DERMATOPHYTOSIS OF NAIL 01/01/2011 MAYS DO, ASHLEY K 562.10 DIVERTICULOSIS OF COLON (WITHOUT HEMORRHAGE) 01/01/2011 MAYS DO, ASHLEY K V72.31 CONFIGURATION ENGINEER EXAM, ROUTINE 01/01/2011 MAYS DO ASHLEY K 110.1 DERMATOPHYTOSIS OF NAIL 01/01/2011 MAYS DO, ASHLEY K 562.10 DIVERTICULOSIS OF COLON (WITHOUT HEMORRHAGE) 01/01/2011 MAYS DO, ASHLEY K V72.31 CONFIGURATION ENGINEER EXAM, ROUTINE 01/01/2011 WATTERS DDSSHO 11 0.1 DERMATOPHYTOSIS OF NAIL 01/01/2011 WATTERS DDS, SHO 562.10 DIVERTICULOSIS OF COLON (WITHOUT HEMORRHAGE) 01/01/2011 WATTERS DDS, SHO V72.31 CONFIGURATION ENGINEER EXAM, ROUTINE 02/12/2011 719.46 NINA N IN JOINT INVOLVING LOWER LEG 02/12/2011 MAYS DO, ASHLEY K 719.46 PAIN IN JOINT INVOLVING LOWER LEG 02/12/2011 DAWIT LUTZ APRN 719.46 PAIN IN JOINT INVOLVING LOWER LEG 02/12/2011 MAYS DO, ASHLEY K 719.46 PAIN IN JOINT INVOLVING LOWER LEG 02/12/2011 MAYS DO, ASHLEY K 719.46 PAIN IN JOINT INVOLVING LOWER LEG 02/12/2011 MAYS DO, ASHLEY K 719.46 PAIN IN JOINT INVOLVING LOWER LEG 02/12/2011 MAYS DO, ASHLEY K 719.46 PAIN IN JOINT INVOLVING LOWER LEG 02/12/2011 MAYS DO, ASHLEY K 719.46 PAIN IN JOINT INVOLVING LOWER LEG 02/12/2011 WATTERS DDSSHO 719.46 PAIN IN JOINT INVOLVING LOWER LEG 05/14/2011 564.1 IRRI TABLE BOWEL SYNDROME 05/14/2011 V70.0 ROUT INE GENERAL MEDICAL EXAMINATION AT A HEALTH CARE FACILITY 05/14/2011 MAYS DO ASHLEY K 564.1 IRRITABLE BOWEL SYNDROME 05/14/2011 MAYS DO ASHLEY K V70.0 ROUTINE GENERAL MEDICAL EXAMINATION AT A HEALTH CARE FACILITY 05/14/2011 DAWIT LUTZ APRN 56 4.1 IRRITABLE BOWEL SYNDROME 05/14/2011 DAWIT LUTZ APRN V7 0.0 ROUTINE GENERAL MEDICAL EXAMINATION AT A HEALTH CARE FACILITY 05/14/2011 MAYS DO, ASHLEY K 564.1 IRRITABLE BOWEL SYNDROME 05/14/2011 MAYS DO, ASHLEY K V70.0 ROUTINE GENERAL MEDICAL EXAMINATION AT A HEALTH CARE FACILITY 05/14/2011 MAYS DO, ASHLEY K 564.1 IRRITABLE BOWEL SYNDROME 05/14/2011 MAYS DO, ASHLEY K V70.0 ROUTINE GENERAL MEDICAL EXAMINATION AT A HEALTH CARE FACILITY 05/14/2011 MAYS DO, ASHLEY K 564.1 IRRITABLE BOWEL SYNDROME 05/14/2011 MAYS DO, ASHLEY K V70.0 ROUTINE GENERAL MEDICAL EXAMINATION AT A HEALTH CARE FACILITY 05/14/2011 MAYS DO, ASHLEY K 564.1 IRRITABLE BOWEL SYNDROME 05/14/2011 MAYS DO, ASHLEY K V70.0 ROUTINE GENERAL MEDICAL EXAMINATION AT A HEALTH CARE FACILITY 05/14/2011 MAYS DO, ASHLEY K 564.1 IRRITABLE BOWEL SYNDROME 05/14/2011 MAYS DO, ASHLEY K V70.0 ROUTINE GENERAL MEDICAL EXAMINATION AT A HEALTH CARE FACILITY 05/14/2011 SHO WATTERS DDS 56 4.1 IRRITABLE BOWEL SYNDROME 05/14/2011 SHO WATTERS DDS V7 0.0 ROUTINE GENERAL MEDICAL EXAMINATION AT A HEALTH CARE FACILITY 09/17/2011 715.00 OST EOARTHROSIS GENERALIZED INVOLVING UNSPECIFIED SITE 09/17/2011 MAYS DO, ASHLEY K 715.00 OSTEOARTHROSIS GENERALIZED INVOLVING UNSPECIFIED SITE 09/17/2011 DAWIT LUTZ APRN 715.00 OSTEOARTHROSIS GENERALIZED INVOLVING UNSPECIFIED SITE 09/17/2011 MAYS DO, ASHLEY K 715.00 OSTEOARTHROSIS GENERALIZED INVOLVING UNSPECIFIED SITE 09/17/2011 MAYS DO, ASHLEY K 715.00 OSTEOARTHROSIS GENERALIZED INVOLVING UNSPECIFIED SITE 09/17/2011 MAYS DO, ASHLEY K 715.00 OSTEOARTHROSIS GENERALIZED INVOLVING UNSPECIFIED SITE 09/17/2011 MAYS DO, ASHLEY K 715.00 OSTEOARTHROSIS GENERALIZED INVOLVING UNSPECIFIED SITE 09/17/2011 MAYS DO, ASHLEY K 715.00 OSTEOARTHROSIS GENERALIZED INVOLVING UNSPECIFIED SITE 09/17/2011 SHO WATTERS DDS 715.00 OSTEOARTHROSIS GENERALIZED INVOLVING UNSPECIFIED SITE 03/03/2012 054.9 HERP ES SIMPLEX WITHOUT COMPLICATION 03/03/2012 461.9 SINU SITIS ACUTE 03/03/2012 466.0 BRON CHITIS, ACUTE 03/03/2012 599.0 URIN ANGELIKA TRACT INFECTION 03/03/2012 MAYS DO, ASHLEY K 054.9 HERPES SIMPLEX WITHOUT COMPLICATION 03/03/2012 MAYS DO, ASHLEY K 461.9 SINUSITIS ACUTE 03/03/2012 MAYS DO, ASHLEY K 466.0 BRONCHITIS, ACUTE 03/03/2012 MAYS DO, ASHLEY K 599.0 URINARY TRACT INFECTION 03/03/2012 BOLIVAR DIAMOND SIZER AND GRADER, DAWIT T 05 4.9 HERPES SIMPLEX WITHOUT COMPLICATION 03/03/2012 BOLIVAR DIAM[employer]ER [employer] GRADER, DAWIT T 46 1.9 SINUSITIS ACUTE 03/03/2012 BOLIVAR DI[employer] SI[employer]ER [employer] GRADER, DAWIT T 46 6.0 BRONCHITIS, ACUTE 03/03/2012 BOLIVAR [employer] GRADER DAWIT T 59 9.0 URINARY TRACT INFECTION 03/03/2012 MAYS DO, ASHLEY K 054.9 HERPES SIMPLEX WITHOUT COMPLICATION 03/03/2012 MAYS DO, ASHLEY K 461.9 SINUSITIS ACUTE 03/03/2012 MAYS DO, ASHLEY K 466.0 BRONCHITIS, ACUTE 03/03/2012 MAYS DO, ASHLEY K 599.0 URINARY TRACT INFECTION 03/03/2012 MAYS DO, ASHLEY K 054.9 HERPES SIMPLEX WITHOUT COMPLICATION 03/03/2012 MAYS DO, ASHLEY K 461.9 SINUSITIS ACUTE 03/03/2012 MAYS DO, ASHLEY K 466.0 BRONCHITIS, ACUTE 03/03/2012 MAYS DO, ASHLEY K 599.0 URINARY TRACT INFECTION 03/03/2012 MAYS DO, ASHLEY K 054.9 HERPES SIMPLEX WITHOUT COMPLICATION 03/03/2012 MAYS DO, ASHLEY K 461.9 SINUSITIS ACUTE 03/03/2012 MAYS DO, ASHLEY K 466.0 BRONCHITIS, ACUTE 03/03/2012 MAYS DO, ASHLEY K 599.0 URINARY TRACT INFECTION 03/03/2012 MAYS DO, ASHLEY K 054.9 HERPES SIMPLEX WITHOUT COMPLICATION 03/03/2012 MAYS DO, ASHLEY K 461.9 SINUSITIS ACUTE 03/03/2012 MAYS DO, ASHLEY K 466.0 BRONCHITIS, ACUTE 03/03/2012 MAYS DO, ASHLEY K 599.0 URINARY TRACT INFECTION 03/03/2012 MAYS DO, ASHLEY K 054.9 HERPES SIMPLEX WITHOUT COMPLICATION 03/03/2012 MAYS DO, ASHLEY K 461.9 SINUSITIS ACUTE 03/03/2012 MAYS DO, ASHLEY K 466.0 BRONCHITIS, ACUTE 03/03/2012 MAYS DO, ASHLEY K 599.0 URINARY TRACT INFECTION 03/03/2012 WATTERS DDS, SHO 05 4.9 HERPES SIMPLEX WITHOUT COMPLICATION 03/03/2012 WATTERS DDS, SHO 46 1.9 SINUSITIS ACUTE 03/03/2012 WATTERS DDS, SHO 46 6.0 BRONCHITIS, ACUTE 03/03/2012 WATTERS DDS, SHO 59 9.0 URINARY TRACT INFECTION 03/29/2012 MAYS DO, ASHLEY K 784.91 POSTNASAL DRIP 03/29/2012 MAYS DO, ASHLEY K 786.2 COUGH 03/29/2012 DAWIT LUTZ APRN 784.91 POSTNASAL DRIP 03/29/2012 DAWIT LUTZ APRN 78 6.2 COUGH 03/29/2012 MAYS DO, ASHLEY K 784.91 POSTNASAL DRIP 03/29/2012 MAYS DO, ASHLEY K 786.2 COUGH 03/29/2012 MAYS DO, ASHLEY K 784.91 POSTNASAL DRIP 03/29/2012 MAYS DO, ASHLEY K 786.2 COUGH 03/29/2012 MAYS DO, ASHLEY K 784.91 POSTNASAL DRIP 03/29/2012 MAYS DO, ASHLEY K 786.2 COUGH 03/29/2012 MAYS DO, ASHLEY K 784.91 POSTNASAL DRIP 03/29/2012 MAYS DO, ASHLEY K 786.2 COUGH 03/29/2012 MAYS DO, ASHLEY K 784.91 POSTNASAL DRIP 03/29/2012 MAYS DO, ASHLEY K 786.2 COUGH 03/29/2012 WATTERS DDS, SHO 784.91 POSTNASAL DRIP 03/29/2012 WATTERS DDS, SHO 78 6.2 COUGH 09/06/2012 DAWIT LUTZ APRN 78 2.1 RASH 09/06/2012 MAYS DO, ASHLEY K 782.1 RASH 09/06/2012 MAYS DO, ASHLEY K 782.1 RASH 09/06/2012 MAYS DO, ASHLEY K 782.1 RASH 09/06/2012 MAYS DO, ASHLEY K 782.1 RASH 09/06/2012 MAYS DO, ASHLEY K 782.1 RASH 09/06/2012 WATTERS DDS, SHO 78 2.1 RASH 01/19/2013 MAYS DO, ASHLEY K V74.5 STD SCREEN 01/19/2013 MAYS DO, ASHLEY K V76.10 BREAST CANCER SCREENING 01/19/2013 MAYS DO, ASHLEY K V76.47 VAGINAL PAP SMEAR SCREENING 01/19/2013 MAYS DO, ASHLEY K V74.5 STD SCREEN 01/19/2013 MAYS DO, ASHLEY K V76.10 BREAST CANCER SCREENING 01/19/2013 MAYS DO, ASHLEY K V76.47 VAGINAL PAP SMEAR SCREENING 01/19/2013 MAYS DO, ASHLEY K V74.5 STD SCREEN 01/19/2013 MAYS DO, ASHLEY K V76.10 BREAST CANCER SCREENING 01/19/2013 MAYS DO, ASHLEY K V76.47 VAGINAL PAP SMEAR SCREENING 01/19/2013 MAYS DO, ASHLEY K V74.5 STD SCREEN 01/19/2013 MAYS DO, ASHLEY K V76.10 BREAST CANCER SCREENING 01/19/2013 MAYS DO, ASHLEY K V76.47 VAGINAL PAP SMEAR SCREENING 01/19/2013 MAYS DO, ASHLEY K V74.5 STD SCREEN 01/19/2013 MAYS DO, ASHLEY K V76.10 BREAST CANCER SCREENING 01/19/2013 MAYS DO, ASHLEY K V76.47 VAGINAL PAP SMEAR SCREENING 01/19/2013 WATTERS DDSSHO V7 4.5 STD SCREEN 01/19/2013 WATTERS DDS, SHO V76.10 BREAST CANCER SCREENING 01/19/2013 WATTERS DDSSHO V76.47 VAGINAL PAP SMEAR SCREENING 02/02/2013 MAYS DO, ASHLEY K 780.99 OTHER GENERAL SYMPTOMS 02/02/2013 MAYS DO, ASHLEY K 791.9 OTHER NONSPECIFIC FINDINGS ON EXAMINATION OF URINE 02/02/2013 MAYS DO, ASHLEY K 780.99 OTHER GENERAL SYMPTOMS 02/02/2013 MAYS DO, ASHLEY K 791.9 OTHER NONSPECIFIC FINDINGS ON EXAMINATION OF URINE 02/02/2013 MAYS DO, ASHLEY K 780.99 OTHER GENERAL SYMPTOMS 02/02/2013 MAYS DO, ASHLEY K 791.9 OTHER NONSPECIFIC FINDINGS ON EXAMINATION OF URINE 02/02/2013 MAYS DO, ASHLEY K 780.99 OTHER GENERAL SYMPTOMS 02/02/2013 DAVON DUMONT ASHLEY K 791.9 OTHER NONSPECIFIC FINDINGS ON EXAMINATION OF URINE 02/02/2013 WATTERSSHO MERRITT DDS 780.99 OTHER GENERAL SYMPTOMS 02/02/2013 WATTERS HECTORS, SHO 79 1.9 OTHER NONSPECIFIC FINDINGS ON EXAMINATION OF URINE 06/15/2013 DAVON DUMONT ASHLEY K 078.10 VIRAL WARTS UNSPECIFIED 06/15/2013 DAVON DUMONT ASHLEY K 535.00 ACUTE GASTRITIS (WITHOUT HEMORRHAGE) 06/15/2013 DAVON DUMONT ASHLEY K 078.10 VIRAL WARTS UNSPECIFIED 06/15/2013 MAYS DO, ASHLEY K 535.00 ACUTE GASTRITIS (WITHOUT HEMORRHAGE) 06/15/2013 DAVON DUMONT ASHLEY K 078.10 VIRAL WARTS UNSPECIFIED 06/15/2013 DAVON DUMONT, ASHLEY K 535.00 ACUTE GASTRITIS (WITHOUT HEMORRHAGE) 06/15/2013 WATTERS HECTORSSHO 078.10 VIRAL WARTS UNSPECIFIED 06/15/2013 WATTERS HECTORSSHO 535.00 ACUTE GASTRITIS (WITHOUT HEMORRHAGE) 06/30/2013 MARJORIE WHITE, REBEKA Neri Ot 577.0 ACUTE PANCREATITIS 06/30/2013 MARJORIE WHITE, REBEKA T Ot 786.50 CHEST PAIN NOS 07/13/2013 DAVON DUMONT ASHLEY K 573.3 HEPATITIS UNSPECIFIED 07/13/2013 MAYS , ASHLEY K 577.0 ACUTE PANCREATITIS 07/13/2013 MAYS , ASHLEY K 793.4 NONSPECIFIC (ABNORMAL) FINDINGS ON RADIOLOGICAL AND OTHER EXAMINATION OF GASTROINTESTINAL TRACT 07/13/2013 DAVON DUMONT ASHLEY K 573.3 HEPATITIS UNSPECIFIED 07/13/2013 MAYS DO ASHLEY K 577.0 ACUTE PANCREATITIS 07/13/2013 MAYS DO ASHLEY K 793.4 NONSPECIFIC (ABNORMAL) FINDINGS ON RADIOLOGICAL AND OTHER EXAMINATION OF GASTROINTESTINAL TRACT 07/13/2013 WATTERS HECTORSSHO 57 3.3 HEPATITIS UNSPECIFIED 07/13/2013 WATTERS HECTORSSHO 57 7.0 ACUTE PANCREATITIS 07/13/2013 WATTERS HECTORSSHO 79 3.4 NONSPECIFIC (ABNORMAL) FINDINGS ON RADIOLOGICAL AND OTHER EXAMINATION OF GASTROINTESTINAL TRACT 08/20/2013 BARRY RAE DO Ot 562. 10 DIVERTICULOSIS COLON (W/O MENT OF HEMORR 01/11/2014 ASHLEY MAYS DO K 461.9 SINUSITIS ACUTE 01/11/2014 MAYS DEMETRIA DUMONTA K 625.8 OTHER SPECIFIED SYMPTOMS ASSOCIATED WITH FEMALE GENITAL ORGANS 01/11/2014 MAYS DO ASHLEY K 727.49 OTHER GANGLION AND CYST OF SYNOVIUM TENDON AND BURSA 01/11/2014 MAYS DO ASHLEY K 845.13 INTERPHALANGEAL (JOINT) TOE SPRAIN 01/11/2014 MAYS DEMETRIA DUMONTA K 847.0 SPRAIN OF NECK 01/11/2014 MAYS DO ASHLEY K V04.81 FLU SHOT 01/11/2014 MAYS DO ASHLEY K V58.69 HIGH RISK MEDICATION 01/11/2014 WATTERS DDS, SHO 46 1.9 SINUSITIS ACUTE 01/11/2014 WATTERS DDS, SHO 62 5.8 OTHER SPECIFIED SYMPTOMS ASSOCIATED WITH FEMALE GENITAL ORGANS 01/11/2014 WATTERS HECTORS, SHO 727.49 OTHER GANGLION AND CYST OF SYNOVIUM TENDON AND BURSA 01/11/2014 WATTERS DDS, SHO 845.13 INTERPHALANGEAL (JOINT) TOE SPRAIN 01/11/2014 WATTERS DDS, SHO 84 7.0 SPRAIN OF NECK 01/11/2014 WATTERS DDS, SHO V04.81 FLU SHOT 01/11/2014 WATTERS DDS, SHO V58.69 HIGH RISK MEDICATION 07/06/2015 Ot 562.10 DIV ERTICULOSIS COLON (W/O MENT OF HEMORR 07/06/2015 Ot 789.09 ABD OMINAL PAIN, OTHER SPECIFIED SITE 07/06/2015 BARRY RAE DO Ot V72. 84 EXAM PRE-OPERATIVE NOS 08/02/2016 Ot 562.10 DIV ERTICULOSIS COLON (W/O MENT OF HEMORR 08/02/2016 Ot 789.09 ABD OMINAL PAIN, OTHER SPECIFIED SITE 08/02/2016 BARRY RAE DO Ot V72. 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 84 EXAM PRE-OPERATIVE NOS 11/29/2018 MADSUE Ilsas STICK WELDER Ot R92 .8 OTH ABN AND INCONCLUSIVE FINDINGS ON DX 11/29/2018 SUE LAMBERT STICK WELDER Ot Z12.31 ENCNTR SCREEN MAMMOGRAM FOR MALIGNANT NE 11/29/2018 SUE LAMBERT STICK WELDER Ot N64.89 OTHER SPECIFIED DISORDERS OF BREAST 11/29/2018 MADSUE Islas STICK WELDER Ot R90.82 WHITE MATTER DISEASE, UNSPECIFIED 11/29/2018 TRESA PITTS MD Ot Z12.31 ENCNTR SCREEN MAMMOGRAM FOR MALIGNANT NE 11/29/2018 KWAME VELEZ APRN Ot S61.211A LACERATION W/O FB OF L IDX FNGR W/O MAREN 11/29/2018 KWAME VELEZ APRN Ot S61.213A LACERATION W/O FB OF L MID FINGER W/O DA 11/29/2018 KWAME VELEZ APRN Ot W27.0XXA CONTACT WITH [employer] TOOL, INITIAL ENC 11/29/2018 KWAME VELEZ DIAMOND SIZER AND GRADER Ot Z88 .5 ALLERGY STATUS TO NARCOTIC AGENT STATUS 11/29/2018 KWAME VELEZ DIAMOND SI[employer]ER [employer] GRADER Ot Z90.710 ACQUIRED ABSENCE OF BOTH CERVIX AND UTER 11/29/2018 KWAME VELEZ DIAMOND SI[employer]ER AND GRADER Ot Z98.51 TUBAL LIGATION STATUS 02/04/2019 TRESA PITTS MD Ot Z12.31 ENCNTR SCREEN MAMMOGRAM FOR MALIGNANT NE 02/04/2019 TRESA PITTS MD Ot Z12.31 ENCNTR SCREEN MAMMOGRAM FOR MALIGNANT NE 02/05/2019 TRESA PITTS MD Ot Z12.31 ENCNTR SCREEN MAMMOGRAM FOR MALIGNANT NE 02/11/2019 TRESA PITTS MD Ot Z12.31 ENCNTR SCREEN MAMMOGRAM FOR MALIGNANT NE 08/04/2019 W K58.9 IBS (irritable bowel syndrome) Rosalie Marino 08/04/2019 W M25.522 Le ft elbow pain Rosalie Marino 08/04/2019 W R21 Rash a nd other nonspecific skin eruption Rosalie Marino 08/06/2019 ROSALIE MARINO [employer] GRADER Ot M25.422 EFFUSION, LEFT ELBOW 08/06/2019 ROSALIE MARINO DI[employer]OND [employer]ER [employer] GRADER Ot M25.422 EFFUSION, LEFT ELBOW 08/11/2019 W K58.9 IBS (irritable bowel syndrome) Rosalie Marino 08/11/2019 W M25.522 Le ft elbow pain Rosalie Marino 08/11/2019 W R21 Rash a nd other nonspecific skin eruption Rosalie Marino Procedures Code [place] [address] UA W / CULTURE IF INDICATED 03/03/2012 J1040 DEPO MEDROL 80 MG INJ 03/03/2012 35306 CULT URE URINE 03/07/2012 53156 THER APUTIC INJ SQ/IM 03/29/2012 24036 TRIC HOMONAS (IN-HOUSE) 01/19/2013 37924 ROUT INE VENIPUNCTURE 01/21/2013 87609 CULT URE UROGENITAL 01/21/2013 62519 LIPI D PANEL 01/22/2013 81230 CBC 01/22/2013 [id number] GF R CALC (RESULT ONLY) 01/22/2013 66535 CMP 01/22/2013 29438 GC/C HLAM PROBE (STATE) 01/22/2013 08097 PAP SMEAR 01/22/2013 Q0091 PAP SMEAR OBTAIN SMEAR 01/22/2013 78993 TSH 01/22/2013 84679 OXIMETRY 06/16/2013 GENERAL S BARRY RAE 07/14/2013 Results Test Result Range CBC With Differential/Platelet - 7 18:19 WBC 7.9 x10E3/uL 3.4-10.8 RBC 4.17 x10E6/uL 3.77-5.28 Hemoglobin 12.5 g/dL 11.1-15.9 Hematocrit 38.0 % 34.0-46.6 MCV 91 fL 79-97 MCH 30.0 pg 26.6-33.0 MCHC 32.9 g/dL 31.5-35.7 RDW 12.9 % 12.3-15.4 Platelets 351 x10E3/uL 150-379 Neutrophils 54 % Lymphs 31 % Monocytes 9 % Eos 4 % Basos 1 % Neutrophils (Absolute) 4.4 x10E3/uL 1.4- 7.0 Lymphs (Absolute) 2.4 x10E3/uL 0.7-3.1 Monocytes(Absolute) 0.7 x10E3/uL 0.1-0.9 Eos (Absolute) 0.3 x10E3/uL 0.0-0.4 Baso (Absolute) 0.1 x10E3/uL 0.0-0.2 Immature Granulocytes 1 % Immature Grans (Abs) 0.1 x10E3/uL 0.0-0. 1 TSH - 07/24/16 18:19 TSH 1.820 uIU/mL 0.450-4.500 RA (RHEUMATOID) FACTOR - 12/11/16 18:27 RA Latex Turbid. <10.0 IU/mL 0.0-13.9 CBC With Differential/Platelet - 7 18:27 WBC 7.3 x10E3/uL 3.4-10.8 RBC 4.47 x10E6/uL 3.77-5.28 Hemoglobin 13.4 g/dL 11.1-15.9 Hematocrit 39.3 % 34.0-46.6 MCV 88 fL 79-97 MCH 30.0 pg 26.6-33.0 MCHC 34.1 g/dL 31.5-35.7 RDW 12.6 % 12.3-15.4 Platelets 398 x10E3/uL 150-379 Neutrophils 47 % Lymphs 40 % Monocytes 8 % Eos 4 % Basos 1 % Neutrophils (Absolute) 3.5 x10E3/uL 1.4- 7.0 Lymphs (Absolute) 2.9 x10E3/uL 0.7-3.1 Monocytes(Absolute) 0.6 x10E3/uL 0.1-0.9 Eos (Absolute) 0.3 x10E3/uL 0.0-0.4 Baso (Absolute) 0.1 x10E3/uL 0.0-0.2 Immature Granulocytes 0 % Immature Grans (Abs) 0.0 x10E3/uL 0.0-0. 1 Rheumatoid Arthritis Factor - 12/11/16 1 8:27 RA Latex Turbid. <10.0 IU/mL 0.0-13.9 Sedimentation Rate-Westergren - 12/11/16 18:27 Sedimentation Rate-Westergren 7 mm/hr 0-40 Amylase, Serum - 12/11/16 18:27 Amylase, Serum 97 U/L 31-124 Lipase, Serum - 12/11/16 18:27 Lipase, Serum 86 U/L 0-59 CMP - 04/24/17 12:56 GLUCOSE 95 mg/dL 65-99 UREA NITROGEN (BUN) 12 mg/dL 7-25 CREATININE 0.74 mg/dL 0.50-1.05 eGFR NON-AFR. BURMESE 89 mL/min/1.73m2 > OR = 60 eGFR 103 mL/min/1.73m2 > OR = 60 BUN/CREATININE RATIO NOT APPLICABLE (calc) 6-22 SODIUM 141 mmol/L 135-146 POTASSIUM 4.4 mmol/L 3.5-5.3 CHLORIDE 105 mmol/L 98-110 CARBON DIOXIDE 27 mmol/L 20-31 CALCIUM 9.8 mg/dL 8.6-10.4 PROTEIN, TOTAL 6.9 g/dL 6.1-8.1 ALBUMIN 4.3 g/dL 3.6-5.1 GLOBULIN 2.6 g/dL (calc) 1.9-3.7 ALBUMIN/GLOBULIN RATIO 1.7 (calc) 1.0-2. 5 BILIRUBIN, TOTAL 0.3 mg/dL 0.2-1.2 ALKALINE PHOSPHATASE 107 U/L 33-130 AST 18 U/L 10-35 ALT 13 U/L 6-29 CULTURE, GENITAL - 09/27/17 10:17 CULTURE, GENITAL SEE NOTE NR SUREPATH PAP RFX HPV mRNA E6/E7 - 10:17 CLINICAL INFORMATION: NRG LMP: NRG PREV. PAP: 2013 NRG PREV. BX: NRG SOURCE: Vagina NRG STATEMENT OF ADEQUACY: NRG INTERPRETATION/RESULT: NR REPORTS ANALYST: NRG COMMENT NRG Coronavirus SARS-CoV-2 SO 2018 - 0 13:01 Coronavirus Ab [Units/volume] in Serum Negative Negative Encounters ACCT No. Visit Date/Time Discharge Status Pt. Type Provider Facility Loc./Unit Complaint [id number] 07/26/2016 08:07:00 Document Registration [id number] 08/14/2019 08:00:00 020 14:21:00 DIS Outpatient BARRY RAE DO [facility] PREOP COLONOSCOPY [id number] 08/04/2019 16:55:00 05/19/2 020 23:59:59 CLS Outpatient ROSALIE MARINO [employer] [facility] RAD LEFT ELBOW SWELLING [id number] 11/29/2018 16:31:00 019 18:10:00 DIS Emergency KWAME VELEZ [employer] [facility] ER L HAND FINGER LAC [id number] 09/19/2018 08:02:00 23:59:59 CLS Outpatient TRESA PITTS MD [facility] RAD SCREENING [id number] 04/27/2017 07:52:00 23:59:59 CLS Outpatient 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, 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 [facility] RAD NEW ONSET HEADACHE [id number] 01/02/2017 12:54:00 017 23:59:59 CLS Outpatient 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, 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 [facility] RAD ABNORMAL MAMMO RT BREAS T R92.8 [id number] 08/21/2016 12:36:00 017 23:59:59 CLS Outpatient MADL, 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 [facility] RAD Z12.39 SCREENING [id number] 08/20/2013 10:36:00 014 13:00:00 DIS Outpatient BARRY RAE DO [facility] SDC ABNORMAL CT SCAN [id number] 08/19/2013 07:15:00 014 23:59:59 CLS Outpatient BARRY RAE DO [facility] PREOP ABNORMAL CT SCAN [id number] 06/30/2013 09:30:00 014 14:34:00 DIS Emergency REBEKA AMADOR MD [facility] ER CHEST PAIN [id number] 08/18/2019 15:15:00 P EN Preadmit BARRY RAE DO [facility] ENDO LLQ ABD PAIN/IBS/DIARRHEA [id number] 02/04/2019 11:47:00 Document Registration [id number] 05/18/2011 07:38:00 Document Registration [id number] 12/19/2010 21:05:00 Document Registration [id number] 02/03/2014 00:00:00 02/03/2014 23:59: 59 CLS Outpatient SHO WATTERS DDS [id number] 01/11/2014 17:43:00 01/11/2014 23:59: 59 CLS Outpatient ASHLEY MAYS DO [id number] 07/13/2013 16:58:00 07/13/2013 23:59: 59 CLS Outpatient DAVON DOASHLEY [id number] 06/15/2013 17:24:00 06/15/2013 23:59: 59 CLS Outpatient ASHLEY MAYS DO [id number] 02/02/2013 17:24:00 02/02/2013 23:59: 59 CLS Outpatient ASHLEY MAYS DO [id number] 01/21/2013 17:05:00 01/21/2013 23:59: 59 CLS Outpatient ASHLEY MAYS DO [id number] 09/06/2012 09:16:00 09/06/2012 23:59: 59 CLS Outpatient DAWIT LUTZ APRN [id number] 03/29/2012 09:10:00 03/29/2012 23:59: 59 CLS Outpatient MAYS ASHLEY DUMONT [id number] 03/03/2012 18:22:00 03/03/2012 23:59: 59 CLS Outpatient [id number] 07/28/2018 10:09:25 07/28/2018 23:59:5 9 CLS Outpatient [id number] 09/27/2017 08:00:00 09/27/2017 23:59:5 9 CLS Outpatient MAZIN [facility] [id number] 09/27/2017 08:00:00 Document Registration [id number] 04/24/2017 12:20:00 Document Registration [id number] 12/11/2016 17:40:00 Document Registration [id number] 12/12/2016 09:11:00 Document Registration
[2019-08-18] MEDS ORDERED: MIDAZOLAM 2 MG/2 ML (VERSED) VIAL ONE (09:13)
[2019-08-18] MEDS ORDERED: proPOfol 200 MG/20 ML (DIPRIVAN) VIAL IV ONE (09:13)
--- NOTE | 2019-08-18 09:14 | Progress Note-Pre Operative ---
Pre-Operative Progress Note H&P Reviewed The H&P was reviewed, patient examined and no changes noted. Date Seen by Provider: Aug 18, 2019 Time Seen by Provider: :13 Date H&P Reviewed: Aug 18, 2019 Time H&P Reviewed: 09:13 Pre-Operative Diagnosis: ibs, llq abd pain, diarrhea BARRY RAE DO Aug 18, 2019 09:14
[2019-08-18 10:00] VITALS: BP 126/57
[2019-08-18 10:05] VITALS: BP 106/57
[2019-08-18 10:15] VITALS: BP 106/57
[2019-08-18 10:28] VITALS: BP 117/78
[2019-08-18 10:43] VITALS: BP 112/65
[2019-08-18 10:45] VITALS: BP 112/65
--- NOTE | 2019-08-18 12:22 | Anesthesia-General Post-Op ---
MAC Patient Condition Mental Status/LOC: Same as Preop Cardiovascular: Satisfactory Nausea/Vomiting: Absent Respiratory: Satisfactory Pain: Controlled Complications: Absent Post Op Complications Complications None Follow Up Care/Instructions Patient Instructions None needed. Anesthesiology Discharge Order Discharge Order Patient was seen this morning after the procedure and she was doing well, no complaints, stable vital signs, no apparent adverse anesthesia problems. DRAGAN SCHMID DO Aug 18, 2019 12:22
--- NOTE | 2019-08-18 15:16 | OPERATIVE REPORT ---
DATE OF SERVICE: 08/18/2019 PREOPERATIVE DIAGNOSES: Left lower quadrant abdominal pain, IBS and diarrhea. POSTOPERATIVE DIAGNOSIS: Diverticulosis. SURGEON: Barry Ernandez DO. ANESTHESIA: Per MDA. ESTIMATED BLOOD LOSS: None. COMPLICATIONS: None. INDICATIONS FOR PROCEDURE: The patient is a 59-year-old female, who was recommended colonoscopy. She understands the risks and benefits of the procedure and wished to proceed with procedure. Consent was signed in the chart. DESCRIPTION OF PROCEDURE: The patient was taken to the endoscopy suite and placed in a left lateral recumbent position. Timeout was performed. Digital rectal exam was performed. There were no palpable polyps, masses or ulcerations. Scope was inserted in the rectum and advanced all the way to cecum with minimal difficulty. Prep was adequate. Scope was then slowly retracted back. There were no polyps, masses or ulcerations within the cecum, ascending, transverse, descending and sigmoid colon. There was a minimal amount of diverticulosis in the left side of the colon. Scope was then continuously retracted back into the rectum, where it was also retroflexed noting no other pathology. Scope was then returned to its normal position, slowly withdrawn until completely removed. The patient tolerated the procedure well without any complications. She was taken to the recovery room in a stable condition. RECOMMENDATIONS: The patient will need a repeat colonoscopy in 5 years if she has history of polyps. If she has any issues before that, will be seen at that time. Job ID: [id number] DocumentID: [id number] Dictated Date: 08/18/2019 10:50:28 Keno Writer / Runner Date: 08/18/2019 15:16:15 Dictated By: BARRY ERNANDEZ DO
== END 2019-08-18 10:53 | disposition home or self-care (01) ==
LOC: ENDO 08:49
PROVIDERS: ATTEND Surgery
DX: K57.30 Diverticulosis of large intestine without perforation or abscess without bleeding (principal); K58.9 Irritable bowel syndrome, unspecified; R19.7 Diarrhea, unspecified; Z88.5 Allergy status to narcotic agent; Z79.899 Other long term (current) drug therapy; Z90.710 Acquired absence of both cervix and uterus; Z90.49 Acquired absence of other specified parts of digestive tract; Z80.9 Family history of malignant neoplasm, unspecified

== ENCOUNTER → 2019-12-31 | Outpatient (CLI) | payer BC ==
--- NOTE | 2019-12-31 14:11 | Diagnostic Imaging Report ---
INDICATION: Palpable lump right breast. Correlation made with prior mammogram from 10/30/2019 and 09/19/2018. BB marker was placed at the area of palpable abnormality in the medial right breast. 2-D and 3-D unilateral right diagnostic mammography was performed with CAD. Right breast is heterogeneously dense, limiting the sensitivity of mammography. No mass or malignant appearing microcalcifications are seen. Right axilla is unremarkable. IMPRESSION: BI-RADS 0 No mammographic features suspicious for malignancy are identified. Even so, directed sonographic interrogation of the area of palpable abnormality is recommended and will be performed today. ACR BI-RADS Category 0: Incomplete. (Needs additional imaging evaluation). Result letter will be mailed to the patient. Note: At least 10% of breast cancer is not imaged by mammography. Dictated by: Dictated on workstation # [id number]
--- NOTE | 2019-12-31 16:03 | Diagnostic Imaging Report ---
INDICATION: Right breast lump. COMPARISON: Correlation is made with diagnostic mammogram from earlier the same day. EXAMINATION: Sonographic interrogation of the area of lump in medial right breast was performed. No sonographic abnormality is detected. No solid or cystic mass is detected. IMPRESSION: No sonographic abnormality is detected. Continued close clinical and self breast exam is recommended to confirm stability of the area of palpable abnormality. ACR BI-RADS Category 1: Negative. Result letter will be mailed to the patient. Note: At least 10% of breast cancer is not imaged by mammography. Dictated by: Dictated on workstation # [id number]
== END ==
LOC: RAD 14:15
PROVIDERS: ATTEND Nurse Practitioner Family
DX: N63.10 Unspecified lump in the right breast, unspecified quadrant (principal)
CPT/HCPCS: 76642; 77065; G0279

== ENCOUNTER → 2020-05-14 | Outpatient (CLI) | payer BC ==
--- NOTE | 2020-05-14 13:59 | Diagnostic Imaging Report ---
Indication: Chronic right shoulder pain. Comparison: None. Discussion: Two views of the right clavicle were obtained. No acute fracture, dislocation, or other osseous abnormality identified. No significant degenerative disease. Alignment is anatomic. Soft tissues are unremarkable. Impression: 1. Negative right clavicle. Dictated by: Dictated on workstation # [id number]
--- NOTE | 2020-05-14 13:59 | Diagnostic Imaging Report ---
Indication: Chronic right shoulder pain. Comparison: None. Discussion: Three views of the right shoulder were obtained. No acute fracture, dislocation, or other osseous abnormality identified. No significant degenerative disease. Alignment is anatomic. Soft tissues are unremarkable. Impression: 1. Negative right shoulder. Dictated by: Dictated on workstation # [id number]
== END ==
LOC: RAD 13:09
PROVIDERS: ATTEND Nurse Practitioner Family
DX: M25.511 Pain in right shoulder (principal); M54.2 Cervicalgia
CPT/HCPCS: 73000; 73030

== ENCOUNTER → 2021-12-22 | Outpatient (CLI) | payer BC ==
--- NOTE | 2021-12-22 13:25 | Diagnostic Imaging Report ---
Indication: Routine screening. Comparison is made with prior mammograms 10/30/2019 and 09/19/2018. 2-D and 3-D bilateral screening mammography was performed with CAD. Both breasts are heterogeneously dense, limiting the sensitivity of mammography. The parenchymal pattern is stable. No mass or malignant-appearing microcalcifications are seen. Axillae are unremarkable. IMPRESSION: BI-RADS Category 1 No mammographic features suspicious for malignancy are identified. ACR BI-RADS Category 1: Negative. Result letter will be mailed to the patient. Note: At least 10% of breast cancer is not imaged by mammography. Dictated by: Dictated on workstation # [id number]
== END ==
LOC: RAD 11:15
PROVIDERS: ATTEND Nurse Practitioner Family
DX: Z12.31 Encounter for screening mammogram for malignant neoplasm of breast (principal)
CPT/HCPCS: 77063; 77067

== ENCOUNTER 2022-03-17 17:37 | Inpatient (IN) | payer OTHER ==
[~2022-03-17] VITALS: Ht 167 cm; Wt 65.8 kg
[2022-03-17] MEDS ORDERED: KETOROLAC 30 MG/ML VIAL IVP STA (17:57)
--- NOTE | 2022-03-17 17:59 | ED Abdominal Pain ---
General Chief Complaint: Abdominal/GI Problems Stated Complaint: LOWER ABD PAIN Nursing Triage Note: ARRIVED VIA AMB WITH COMPLAINTS OF LOWER ABD PAIN AND NAUSEA FOR SEVERAL DAYS. Source of Information: Patient History of Present Illness Date Seen by Provider: Mar 17, 2022 Time Seen by Provider: 17:50 Initial Comments PT ARRIVES VIA POV FROM HOME C/O DIFFUSE LOWER ABDOMINAL PAIN SINCE Saturday03/14/22 PAIN IS CONSTANT, WITH INTERMITTENT CRAMPING C/O NAUSEA, NO VOMITING HAD NORMAL BM THIS AM NO URINARY SYMPTOMS THINKS SHE HAD FEVER ON SATURDAY NIGHT--HAD NIGHT SWEATS AND WOKE UP SWEATING ON SATURDAY MORNING. HAS NOT CHECKED TEMPERATURE HAS HAD DECREASED APPETITE, SINCE SATURDAY. ATE A FEW CRACKERS THIS MORNING, AND HAS HAD A LITTLE BIT OF WATER TODAY SHE HAS HAD PRIOR CHOLECYSTECTOMY, HYSTERECTOMY WITH BILATERAL SALPINGO-OOPHOR ECTOMY, AND BLADDER SUSPENSION SHE HAS HISTORY OF DIVERTICULITIS. A PRESCRIPTION FOR AMOXIL WAS CALLED IN ON SATURDAY FOR THIS PROBLEM, BY DR. PITTS'S OFFICE. PCP: DR. PITTS Allergies and Home Medications Allergies Coded Allergies: morphine (Unverified Allergy, Mild, 03/28/09) Patient Home Medication List Home Medication List Reviewed: Yes No Active Prescriptions or Reported Meds Review of Systems Review of Systems Constitutional: see HPI, diaphoresis Respiratory: No Symptoms Reported Cardiovascular: No Symptoms Reported Gastrointestinal: See HPI, Abdominal Pain; Denies Constipated, Denies Diarrhea; Nausea, Poor Appetite, Poor Fluid Intake; Denies Vomiting Genitourinary: No Symptoms Reported Musculoskeletal: no symptoms reported; No back pain Skin: no symptoms reported Psychiatric/Neurological: No Symptoms Reported Endocrine: No Symptoms Reported Hematologic/Lymphatic: No Symptoms Reported Past Jxzolse-Jncdgm-Yhrfhh Hx Patient Social History Tobacco Use?: No Smoking Status: Never a Smoker Smokeless Tobacco Frequency: Never a User Use of E-Cig and/or Vaping Jay Jay: Never a User Substance use?: No Alcohol Use?: No Immunizations Up To Date Tetanus Booster (TDap): Less than 5yrs PED Vaccines UTD: Yes COVID19 Vaccine 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 Seasonal Allergies Seasonal Allergies: No Past Medical History Surgeries: Yes Bladder Surgery, Gallbladder, Hysterectomy, Oophorectomy, Orthopedic, Tubal L igation Respiratory: No Cardiac: No 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 RAE. Physical Exam Vital Signs Vital Signs - First Documented 03/17/22 17:40 Temp 36.2 Pulse 109 Resp 16 B/P (MAP) 144/81 (102) Pulse Ox 98 O2 Delivery Room Air Capillary Refill : Less Than 3 Seconds Height/Weight/BMI Height: 5'6.00" Weight: 128lbs. oz. 58.546028py; 21.00 BMI Method: General Appearance: WD/WN, no apparent distress HEENT: PERRL/EOMI; No scleral icterus (R), No scleral icterus (L), No pale conjunctivae (R), No pale conjunctivae (L) Neck: normal inspection Respiratory: normal breath sounds, no respiratory distress, no accessory muscle use Cardiovascular: regular rate, rhythm (HR AROUND 100 ON EXAM), no murmur Gastrointestinal: normal bowel sounds, soft; No distended, No guarding, No rebound; tenderness (DIFFUSE LOWER ABDOMINAL TENDERNESS); No hernia, No mass Extremities: normal inspection, normal capillary refill Back: normal inspection, no CVA tenderness 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2 fL Immature Granulocyte % (Auto) 0 % Neutrophils (%) (Auto) 63 42-75 % Lymphocytes (%) (Auto) 23 12-44 % Monocytes (%) (Auto) 9 0-12 % Eosinophils (%) (Auto) 4 0-10 % Basophils (%) (Auto) 1 0-10 % Neutrophils # (Auto) 6.8 1.8-7.8 10^3/uL Lymphocytes # (Auto) 2.6 1.0-4.0 10^3/uL Monocytes # (Auto) 1.0 0.0-1.0 10^3/uL Eosinophils # (Auto) 0.4 H 0.0-0.3 10^3/uL Basophils # (Auto) 0.1 0.0-0.1 10^3/uL Immature Granulocyte # (Auto) 0.0 0.0-0.1 10^3/uL Erythrocyte Sedimentation Rate 36 H 0-30 MM/HR Sodium Level 137 135-145 MMOL/L Potassium Level 3.6 3.6-5.0 MMOL/L Chloride Level 101 98-107 MMOL/L Carbon Dioxide Level 25 21-32 MMOL/L Anion Gap 11 5-14 MMOL/L Blood Urea Nitrogen 9 7-18 MG/DL Creatinine 0.84 0.60-1.30 MG/DL Estimat Glomerular Filtration Rate 79 BUN/Creatinine Ratio 11 Glucose Level 125 H 70-105 MG/DL Calcium Level 10.0 8.5-10.1 MG/DL Corrected Calcium 9.9 8.5-10.1 MG/DL Magnesium Level 2.2 1.6-2.4 MG/DL Total Bilirubin 0.5 0.1-1.0 MG/DL Aspartate Amino Transf (AST/SGOT) 23 5-34 U/L Alanine Aminotransferase (ALT/SGPT) 22 0-55 U/L Alkaline Phosphatase 116 40-136 U/L C-Reactive Protein High Sensitivity 6.13 H 0.00-0.50 MG/DL Total Protein 7.8 6.4-8.2 GM/DL Albumin 4.1 3.2-4.5 GM/DL Amylase Level 90 25-125 U/L Lipase 58 8-78 U/L Urine Color DARK YELLOW Urine Clarity CLOUDY Urine pH 6.0 5-9 Urine Specific Spencer >=1.030 1.016-1.022 Urine Protein TRACE H NEGATIVE Urine Glucose (UA) NEGATIVE NEGATIVE Urine Ketones NEGATIVE NEGATIVE Urine Nitrite NEGATIVE NEGATIVE Urine Bilirubin 1+ H NEGATIVE Urine Urobilinogen 0.2 < = 1.0 MG/DL Urine Leukocyte Esterase TRACE H NEGATIVE Urine RBC (Auto) 3+ H NEGATIVE Urine RBC RARE /HPF Urine WBC 10-25 H /HPF Urine Squamous Epithelial Cells 5-10 /HPF Urine Crystals NONE /LPF Urine Bacteria TRACE /HPF Urine Casts NONE /LPF Urine Mucus SMALL H /LPF Urine Culture Indicated YES My Orders Orders - MAHOGANY POTTER DO Ed Iv/Invasive Line Start (03/17/22 17:57) Monitor-Rhythm Ecg Trace Only (03/17/22 17:57) Ct Abd/Pelv W (Appendicitis) (03/17/22 17:57) Acute Abd Series (03/17/22 17:57) Amylase (03/17/22 17:57) Cbc With Automated Diff (03/17/22 17:57) Comprehensive Metabolic Panel (03/17/22 17:57) Hs C Reactive Protein (03/17/22 17:57) Lipase (03/17/22 17:57) Magnesium (03/17/22 17:57) Ua Culture If Indicated (03/17/22 17:57) Erythrocyte Sedimentation Rate (03/17/22 17:57) Ed Iv/Invasive Line Start (03/17/22 17:57) Lactated Ringers (Lr 1000 Ml Iv Solution (03/17/22 18:00) Ondansetron Injection (Zofran Injectio (03/17/22 18:00) Ketorolac Injection (Toradol Injection) (03/17/22 17:57) Iohexol Injection (Omnipaque 350 Mg/Ml 1 (03/17/22 18:30) Received Contrast (Hold Metformin- Contr (03/17/22 18:30) Ns (Ivpb) (Sodium Chloride 0.9% Ivpb Bag (03/17/22 18:30) Urine Culture (03/17/22 17:51) Fentanyl Inj (Sublimaze Injection) (03/17/22 19:15) Piperacillin Sodium/Tazobactam (Zosyn Vi (03/17/22 19:15) Metronidazole 500mg/100ml Ivpb (Flagyl 5 (03/17/22 19:15) Medications Given in ED Current Medications Medications Dose Ordered Sig/Ramya Route Start Time Stop Time Status Last Admin Dose Admin Iohexol 100 ml ONCE ONCE IV 03/17/22 18:30 03/17/22 18:31 DC 03/17/22 18:28 70 ML Lactated Ringer's 1,000 ml @ 0 mls/hr Q0M ONCE IV 03/17/22 18:00 03/17/22 18:01 DC 03/17/22 18:08 1,000 MLS/HR Ondansetron HCl 4 mg ONCE ONCE IVP 03/17/22 18:00 03/17/22 18:01 DC 03/17/22 18:08 4 MG Sodium Chloride 100 ml ONCE ONCE IV 03/17/22 18:30 03/17/22 18:31 DC 03/17/22 18:28 80 ML Vital Signs/I&O 03/17/22 17:40 Temp 36.2 Pulse 109 Resp 16 B/P (MAP) 144/81 (102) Pulse Ox 98 O2 Delivery Room Air Blood Pressure Mean: 102 Progress Progress Note : Progress Note GIVEN: -IV FLUIDS -ZOFRAN -TORADOL -FENTANYL -ZOSYN + FLAGYL UNEVENTFUL ER STAY MINIMAL RELIEF OF PAIN WITH TORADOL MODERATE RELIEF OF PAIN WITH FENTANYL VITALS STABLE--BP AND HR STABLE, NO FEVER. NO SIGNS OF PERITONITIS OR SEPSIS AT THIS TIME REVIEWED ALL TEST RESULTS, NEED FOR ADMIT AND ANTICIPATED COURSE WITH PT. Diagnostic Imaging Comments CT ABDOMEN/PELVIS--PER RADIOLOGIST REPORT AT 1859 FINDINGS: Minimal bibasilar scarring and/or atelectasis. Cholecystectomy. The liver and spleen are unremarkable. The adrenal glands are unremarkable. The pancreas is unremarkable. The kidneys are unremarkable. Minimal vascular calcifications without aneurysmal dilatation of the abdominal aorta. Tiny fat-containing umbilical hernia. The appendix is unremarkable. The urinary bladder is decompressed, therefore not well evaluated. The uterus is not visualized, likely surgically absent. Colonic diverticulosis. However, significant mural thickening and fat stranding is noted involving the proximal sigmoid colon. 1.1 cm gas and fluid collection is noted either within the wall of the colon at this location or immediately adjacent to it or potentially this could relate to a diverticulum. The remainder of the colon is predominantly decompressed. No small bowel obstruction. Mild mural thickening of the decompressed colon with mild mural thickening with scattered loops of small bowel. No significant free fluid. No definite free air. No acute osseous abnormality IMPRESSION: Findings consistent with acute diverticulitis involving the proximal sigmoid colon. Small gas and fluid collection at this location could relate to simply a prominent diverticulum, though a tiny contained abscess/perforation would be an additional consideration. Mural thickening involving the colon and scattered loops of small bowel, favored to relate to underlying enteritis versus simply poor distention. Cholecystectomy and hysterectomy. Reviewed: Reviewed by Me Departure Communication (Admissions) 1901--SPOKE WITH DR. RAE, SURGEON, ANTIBIOTIC ORDERS NOTED. HE ADVISES TO ADMIT TO HOSPITALIST AND HE WILL SEE PT IN CONSULT 1903--SPOKE WITH DR. AVERY, HOSPITALIST, ACCEPTS PT FOR ADMIT. Impression Primary Impression: Acute diverticulitis Disposition: ADMITTED INPATIENT Condition: Stable Admissions Decision to Admit Reason: Admit from ER (General) Decision to Admit/Date: Mar 17, 2022 Time/Decision to Admit Time: 19:05 Departure-Patient Inst. Referrals: TRESA PITTS MD (PCP/Family) Primary Care Physician Scripts No Active Prescriptions or Reported Meds MAHOGANY POTTER DO Mar 17, 2022 17:59
[2022-03-17] MEDS ORDERED: ONDANSETRON 4 MG/2 ML (SDV) Z0FRAN IVP ONE (18:00)
[2022-03-17] MEDS ORDERED: LACTATED RINGERS 1,000 ML IV ONE (18:00)
[2022-03-17 18:03] LABS: BASOPHILS # (AUTO) 0.1 10^3/uL (0.0-0.1); BASOPHILS % (AUTO) 1 % (0-10); EOSINOPHILS # (AUTO) 0.4 10^3/uL (0.0-0.3); EOSINOPHILS % (AUTO) 4 % (0-10); HEMATOCRIT 41 % (35-52); HEMOGLOBIN 13.9 g/dL (11.5-16.0); LYMPHOCYTES # (AUTO) 2.6 10^3/uL (1.0-4.0); LYMPHOCYTES % (AUTO) 23 % (12-44); MEAN CORPUSCULAR HEMOGLOBIN 30 pg (25-34); MEAN CORPUSCULAR HGB CONC 34 g/dL (32-36); MEAN CORPUSCULAR VOLUME 89 fL (80-99); MEAN PLATELET VOLUME 9.1 fL (9.0-12.2); MONOCYTES % (AUTO) 9 % (0-12); NEUTROPHILS # (AUTO) 6.8 10^3/uL (1.8-7.8); NEUTROPHILS % (AUTO) 63 % (42-75); PLATELET COUNT 369 10^3/uL (130-400); WHITE BLOOD COUNT 10.9 10^3/uL (4.3-11.0)
[2022-03-17 18:08] LABS: ALBUMIN 4.1 GM/DL (3.2-4.5)
[2022-03-17 18:09] LABS: POTASSIUM 3.6 MMOL/L (3.6-5.0)
[2022-03-17 18:11] LABS: TOTAL PROTEIN 7.8 GM/DL (6.4-8.2)
[2022-03-17 18:13] LABS: BILIRUBIN,TOTAL 0.5 MG/DL (0.1-1.0)
[2022-03-17 18:15] LABS: CREATININE SERUM 0.84 MG/DL (0.60-1.30)
[2022-03-17 18:18] LABS: MAGNESIUM 2.2 MG/DL (1.6-2.4)
[2022-03-17 18:21] LABS: ERYTHROCYTE SEDIMENTATION RATE 36 MM/HR (0-30)
[2022-03-17 18:30] LABS: CLARITY,URINE CLOUDY; COLOR,URINE DARK YELLOW; GLUCOSE, URINE (UA) NEGATIVE (NEGATIVE); KETONES,URINE NEGATIVE (NEGATIVE); LEUKOCYTE ESTERASE ,URINE TRACE (NEGATIVE); NITRITE,URINE NEGATIVE (NEGATIVE); PROTEIN,URINE TRACE (NEGATIVE)
[2022-03-17] MEDS ORDERED: IOHEXOL 350 MG/ML 100 ML (OMNIPAQUE 350) VIAL IV ONE (18:30)
[2022-03-17] MEDS ORDERED: NS 100 ML (IVPB) BAG IV ONE (18:30)
[2022-03-17] MEDS ORDERED: HOLD METFORMIN - RECEIVED CONTRAST 20 ML VIAL IV SCH (18:30)
[2022-03-17 18:43] LABS: BACTERIA,URINE TRACE /HPF; BILIRUBIN,URINE 1+ (NEGATIVE); RBC,URINE RARE /HPF
--- NOTE | 2022-03-17 18:51 | Diagnostic Imaging Report ---
PROCEDURE: CT abdomen and pelvis with contrast, rule out appendicitis. TECHNIQUE: Multiple contiguous axial images were obtained through the abdomen and pelvis after the administration of intravenous contrast. All CT scans use one or more of the following dose optimizing techniques: automated exposure control, MA and/or KvP adjustment based on patient size and exam type or iterative reconstruction. INDICATION: Pain. COMPARISON: 06/30/2013. FINDINGS: Minimal bibasilar scarring and/or atelectasis. Cholecystectomy. The liver and spleen are unremarkable. The adrenal glands are unremarkable. The pancreas is unremarkable. The kidneys are unremarkable. Minimal vascular calcifications without aneurysmal dilatation of the abdominal aorta. Tiny fat-containing umbilical hernia. The appendix is unremarkable. The urinary bladder is decompressed, therefore not well evaluated. The uterus is not visualized, likely surgically absent. Colonic diverticulosis. However, significant mural thickening and fat stranding is noted involving the proximal sigmoid colon. 1.1 cm gas and fluid collection is noted either within the wall of the colon at this location or immediately adjacent to it or potentially this could relate to a diverticulum. The remainder of the colon is predominantly decompressed. No small bowel obstruction. Mild mural thickening of the decompressed colon with mild mural thickening with scattered loops of small bowel. No significant free fluid. No definite free air. No acute osseous abnormality IMPRESSION: Findings consistent with acute diverticulitis involving the proximal sigmoid colon. Small gas and fluid collection at this location could relate to simply a prominent diverticulum, though a tiny contained abscess/perforation would be an additional consideration. Mural thickening involving the colon and scattered loops of small bowel, favored to relate to underlying enteritis versus simply poor distention. Cholecystectomy and hysterectomy. Additional findings as above. Dictated by: Dictated on workstation # [id number]
--- NOTE | 2022-03-17 19:02 | Diagnostic Imaging Report ---
INDICATION: Abdominal pain. COMPARISON: CT from the same date. TECHNIQUE: Four radiographs of the chest and abdomen dated March 17, 2022. FINDINGS: The cardiac silhouette is within normal limits in size. No significant pulmonary vascular congestion. The lungs are clear of focal pulmonary opacity. No pleural effusion. No pneumothorax. No acute osseous abnormality within the chest. Contrast is noted within the renal collecting systems and urinary bladder related to recent CT examination. Surgical clips are seen overlying the right upper abdomen. Nonobstructive bowel gas pattern. No free air. No acute osseous abnormality with mild scattered osseous degenerative changes. IMPRESSION: No acute abnormality. See separately dictated CT of the abdomen and pelvis from the same date for findings within the abdomen and pelvis. Dictated by: Dictated on workstation # [id number]
[2022-03-17] MEDS ORDERED: metroNIDAZOLE 500MG/100ML IVPB 100 ML IV ONE (19:15)
[2022-03-17] MEDS ORDERED: PIPERACILLIN SODIUM/TAZOBACTAM 4.5 GM in NS (IVPB) 100 ML IV ONE (19:15)
[2022-03-17] MEDS ORDERED: fentaNYL INJ 100 MCG/2 ML AMP IVP ONE (19:15)
[2022-03-17 20:05] VITALS: BP 115/68
[2022-03-17] MEDS ORDERED: D5 1/2 NS W/KCL 20 MEQ/L 1,000 ML IV ONE (20:06)
[2022-03-17] MEDS: D5 1/2 NS W/KCL 20 MEQ/L 1,000 ML IV SCH (20:25)
[2022-03-17] MEDS ORDERED: ONDANSETRON 4 MG/2 ML (SDV) Z0FRAN IV PRN (21:30)
[2022-03-17] MEDS ORDERED: fentaNYL INJ 100 MCG/2 ML AMP IV PRN (21:30)
[2022-03-18] VITALS (7 sets, daily range): BP systolic 93–115; BP diastolic 51–68
[2022-03-18] MEDS: PIPERACILLIN SODIUM/TAZOBACTAM 4.5 GM in NS (IVPB) 100 ML IV SCH ×3 (00:41→17:16)
[2022-03-18] MEDS: D5 1/2 NS W/KCL 20 MEQ/L 1,000 ML IV SCH ×5 (01:50→18:40)
[2022-03-18 05:47] LABS: BASOPHILS # (AUTO) 0.1 10^3/uL (0.0-0.1); BASOPHILS % (AUTO) 1 % (0-10); MEAN CORPUSCULAR VOLUME 92 fL (80-99)
[2022-03-18 05:49] LABS: EOSINOPHILS # (AUTO) 0.5 10^3/uL (0.0-0.3); EOSINOPHILS % (AUTO) 8 % (0-10); HEMATOCRIT 35 % (35-52); HEMOGLOBIN 11.5 g/dL (11.5-16.0); LYMPHOCYTES # (AUTO) 2.3 10^3/uL (1.0-4.0); LYMPHOCYTES % (AUTO) 33 % (12-44); MEAN CORPUSCULAR HEMOGLOBIN 31 pg (25-34); MEAN CORPUSCULAR HGB CONC 33 g/dL (32-36); MEAN PLATELET VOLUME 10.2 fL (9.0-12.2); MONOCYTES # (AUTO) 0.7 10^3/uL (0.0-1.0); MONOCYTES % (AUTO) 10 % (0-12); NEUTROPHILS # (AUTO) 3.3 10^3/uL (1.8-7.8); NEUTROPHILS % (AUTO) 48 % (42-75); PLATELET COUNT 252 10^3/uL (130-400); WHITE BLOOD COUNT 6.9 10^3/uL (4.3-11.0)
[2022-03-18 06:05] LABS: CALCIUM 8.6 MG/DL (8.5-10.1); CREATININE SERUM 0.81 MG/DL (0.60-1.30); POTASSIUM 4.3 MMOL/L (3.6-5.0)
[2022-03-18] MEDS: metroNIDAZOLE 500 MG/100 ML IVPB (PRE-MIX) IV SCH ×2 (06:48→20:56)
--- NOTE | 2022-03-18 11:48 | History & Physical-Hospitalist ---
History of Present Illness HPI/Chief Complaint Pt is a 61yoCF with a PMH of diverticulitis who presented to the ER due to abdominal pain, nausea, and vomiting. She has been nasueated but has not vomited. She denies flatus but had a normal Bm yesterday morning. Her pain is worse in the lower and left side of her abdomen. She had a CT done which revealed diverticulitis and possible abscess or microperforation. I saw her this morning with Dr Rae. She remains quite tender but is hopeful to go home. Discussed management plan with her and she is agreeable to staying for further care. Source: patient Date Seen 03/18/22 Time Seen by a Provider: 11:43 Attending Physician Tresa Amezquita MD PCP Admitting Physician: Lidia Hough MD Attending Physician: Tresa Amezquita MD Referring Physician Date of Admission Mar 17, 2022 at 19:04 Home Medications & Allergies Home Medications Reviewed patient Home Medication Reconciliation performed by pharmacy medication reconciliations biochemistry technician and/or nursing. Patients Allergies have been reviewed. Allergies Allergies Coded Allergies morphine (Unverified Allergy, Mild, 03/28/09) Past Yyaceku-Fsfimj-Xrmdqc Hx Patient Social History Tobacco Use?: No Smoking Status: Never a Smoker Smokeless Tobacco Frequency: Never a User Use of E-Cig and/or Vaping dev: No Use of E-Cig and/or Vaping Jay Jay: Never a User Substance use?: No Alcohol Use?: No Pt feels they are or have been: No Immunizations Up To Date Date of Influenza Vaccine: Dec 22, 2021 PED Vaccines UTD: Yes Seasonal Allergies Seasonal Allergies: No Current Status status: No status: No Advance Directives: Yes Advance Directive Location: Family to bring in copy Communicates: Verbally Primary Language: Sami Preferred Spoken Language: Sami Is interpretation needed?: No Implanted or Applied Medical D: None Past Medical History Surgeries: Bladder Surgery, Gallbladder, Hysterectomy, Oophorectomy, Orthopedic, 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 RAE. Review of Systems Constitutional: No chills, No fever EENTM: no symptoms reported Respiratory: no symptoms reported Cardiovascular: no symptoms reported Gastrointestinal: abdominal pain; No constipation, No diarrhea; loss of appetite, nausea; No vomiting Genitourinary: no symptoms reported Musculoskeletal: no symptoms reported Skin: no symptoms reported Psychiatric/Neurological: No Symptoms Reported Physical Exam Physical Exam Vital Signs Vital Signs - First Documented 03/17/22 17:40 Temp 36.2 Pulse 109 Resp 16 B/P (MAP) 144/81 (102) Pulse Ox 98 O2 Delivery Room Air Capillary Refill : Less Than 3 Seconds Height, Weight, BMI Height: 5'6.00" Weight: 128lbs. oz. 58.468519in; 23.59 BMI Method: General Appearance: No Apparent Distress, WD/WN HEENT: PERRL/EOMI, Moist Mucous Membranes; No Scleral Icterus (L), No Scleral Icterus (R) Neck: Normal Inspection, Supple Respiratory: Lungs Clear, No Accessory Muscle Use, No Respiratory Distress Cardiovascular: Regular Rate, Rhythm, No JVD, No Murmur Gastrointestinal: Normal Bowel Sounds, Soft; No Distended; Tenderness Extremity: No Calf Tenderness, No Pedal Edema Neurologic/Psychiatric: Alert, Oriented x3, Normal Mood/Affect Skin: Normal Color, Warm/Dry Results Results/Procedures Labs Laboratory Tests 03/17/22 17:45 03/18/22 05:10 Patient resulted labs reviewed. Imaging: Reviewed Imaging Report Imaging [facility] [place], [place] NAME: LES EFLDMAN [facility] REC#: [id number] PT STATUS: ADM IN : 1960 PHYSICIAN: MAHOGANY POTTER DO ADMIT DATE: 03/17/22/ Signed Date of Exam:03/17/22 CT ABD/PELV W (APPENDICITIS) PROCEDURE: CT abdomen and pelvis with contrast, rule out appendicitis. TECHNIQUE: Multiple contiguous axial images were obtained through the abdomen and pelvis after the administration of intravenous contrast. All CT scans use one or more of the following dose optimizing techniques: automated exposure control, MA and/or KvP adjustment based on patient size and exam type or iterative reconstruction. INDICATION: Pain. COMPARISON: 06/30/2013. FINDINGS: Minimal bibasilar scarring and/or atelectasis. Cholecystectomy. The liver and spleen are unremarkable. The adrenal glands are unremarkable. The pancreas is unremarkable. The kidneys are unremarkable. Minimal vascular calcifications without aneurysmal dilatation of the abdominal aorta. Tiny fat-containing umbilical hernia. The appendix is unremarkable. The urinary bladder is decompressed, therefore not well evaluated. The uterus is not visualized, likely surgically absent. Colonic diverticulosis. However, significant mural thickening and fat stranding is noted involving the proximal sigmoid colon. 1.1 cm gas and fluid collection is noted either within the wall of the colon at this location or immediately adjacent to it or potentially this could relate to a diverticulum. The remainder of the colon is predominantly decompressed. No small bowel obstruction. Mild mural thickening of the decompressed colon with mild mural thickening with scattered loops of small bowel. No significant free fluid. No definite free air. No acute osseous abnormality IMPRESSION: Findings consistent with acute diverticulitis involving the proximal sigmoid colon. Small gas and fluid collection at this location could relate to simply a prominent diverticulum, though a tiny contained abscess/perforation would be an additional consideration. Mural thickening involving the colon and scattered loops of small bowel, favored to relate to underlying enteritis versus simply poor distention. Cholecystectomy and hysterectomy. Additional findings as above. Dictated by: Dictated on workstation # [id number] Dict: 03/17/221842 Trans: 03/17/222045 [facility] [id number] Interpreted by: REYES CHAVES MD Electronically signed by: REYES CHAVES MD 03/17/222045 [facility], [place] NAME: GASTONLES A [facility] REC#: [id number] PT STATUS: ADM IN : 1960 PHYSICIAN: MAHOGANY POTTER DO ADMIT DATE: 03/17/22/ Signed Date of Exam:03/17/22 ACUTE ABD SERIES INDICATION: Abdominal pain. COMPARISON: CT from the same date. TECHNIQUE: Four radiographs of the chest and abdomen dated March 17, 2022. FINDINGS: The cardiac silhouette is within normal limits in size. No significant pulmonary vascular congestion. The lungs are clear of focal pulmonary opacity. No pleural effusion. No pneumothorax. No acute osseous abnormality within the chest. Contrast is noted within the renal collecting systems and urinary bladder related to recent CT examination. Surgical clips are seen overlying the right upper abdomen. Nonobstructive bowel gas pattern. No free air. No acute osseous abnormality with mild scattered osseous degenerative changes. IMPRESSION: No acute abnormality. See separately dictated CT of the abdomen and pelvis from the same date for findings within the abdomen and pelvis. Dictated by: Dictated on workstation # [id number] Dict: 03/17/221857 Trans: 03/17/222044 [facility] [id number] Interpreted by: REYES CHAVES MD Electronically signed by: REYES CHAVES MD 03/17/222044 Assessment/Plan Admission Diagnosis Diverticulitis with microperforation Admission Status: Inpatient Order (span 2 midnights) Reason for Inpatient Admission: see below Assessment and Plan Diverticulitis with microperforation No white count but quite tender Continue IV abx Surgery consulted, appreciate recs NPO Pain regimen DVT ppx: SCDs Diagnosis/Problems Diagnosis/Problems (1) Diverticulitis Copy Copies To 1: TRESA AMEZQUITA MD, KATELYN M MD Mar 18, 2022 11:48
--- NOTE | 2022-03-18 14:47 | Consultation - Surgery ---
History of Present Illness History of Present Illness Patient Consulted On(ramone/time) 03/18/22 14:39 Date Seen by Provider: Mar 18, 2022 Time Seen by Provider: 10:41 History of Present Illness Consult requested by Dr. Hough for diverticulitis Patient is a 61 year old female who presented to ED yesterday with llq abdominal pain. She has been having pain since about Saturday/Saturday. Pain continued to worsen. She was experiencing nausea but no emesis. No appetitie. Has had previous episodes of diverticulitis. Questions if she had fever previously. Wanting to go home. She had ct scan consistent with diverticulitis question an area of microperforation/abscess. Allergies and Home Medications Allergies Coded Allergies: morphine (Unverified Allergy, Mild, 03/28/09) Patient Home Medication List Home Medication List Reviewed: Yes No Active Prescriptions or Reported Meds Past Qllekgu-Kszrsq-Haliqi Hx Patient Social History Smoking Status: Never a Smoker 2nd Hand Smoke Exposure: No Recent Hopitalizations: No Alcohol Use?: No Have you traveled recently?: No Immunizations Up To Date Tetanus Booster (TDap): Less than 5yrs PED Vaccines UTD: Yes Date of Influenza Vaccine: Dec 22, 2021 Seasonal Allergies Seasonal Allergies: No Surgeries History of Surgeries: Yes Surgeries: Bladder Surgery, Gallbladder, Hysterectomy, Oophorectomy, Orthopedic, Tubal Ligation Respiratory History of Respiratory Disorde: No Cardiovascular History of Cardiac Disorders: No Neurological History of Neurological Disord: Yes (CLUSTER HEADACHES) Reproductive System Hx Reproductive Disorders: No 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 Genitourinary History of Genitourinary Disor: No Gastrointestinal History of Gastrointestinal Di: Yes Gastrointestinal Disorders: Diverticulosis, Chronic Diarrhea, Irritable Bowel Musculoskeletal History of Musculoskeletal Dis: No Endocrine History of Endocrine Disorders: No HEENT History of HEENT Disorders: No Cancer History of Cancer: No Psychosocial History of Psychiatric Problem: No Integumentary History of Skin or Integumenta: No Blood Transfusions History of Blood Disorders: No Reviewed Nursing Assessment Reviewed/Agree w Nursing PMH: Yes Family Medical History Significant Family History: No Pertinent Family Hx Review of Systems-General Constitutional: No chills, No diaphoresis; fever EENTM: No blurred vision, No double vision Respiratory: No cough, No dyspnea on exertion Cardiovascular: No chest pain, No palpitations Gastrointestinal: No abdominal pain (LLQ); nausea; No vomiting Genitourinary: No decreased output, No discharge Musculoskeletal: No back pain, No joint pain Skin: No change in color, No change in hair/nails Psychiatric/Neurological: Denies Anxiety, Denies Depressed, Denies Emotional Problems All Other Systems Reviewed Negative Unless Noted: Yes (Negative excepted noted.) Physical Exam-General Problems Physical Exam Vital Signs Vital Signs - First Documented 03/17/22 17:40 Temp 36.2 Pulse 109 Resp 16 B/P (MAP) 144/81 (102) Pulse Ox 98 O2 Delivery Room Air Capillary Refill : Less Than 3 Seconds General Appearance: WD/WN, no apparent distress HEENT: PERRL/EOMI, normal ENT inspection Neck: non-tender, supple Respiratory: chest non-tender, no respiratory distress, no accessory muscle use Cardiovascular: regular rate, rhythm, no JVD Gastrointestinal: soft, tenderness (llq no guarding or rebounding) Rectal: deferred Back: no CVA tenderness, no vertebral tenderness Extremities: non-tender, normal inspection Neurologic/Psychiatric: alert, normal mood/affect, oriented x 3 Skin: normal color, warm/dry Lymphatic: no adenopathy Data Review Labs Laboratory Tests 03/17/22 17:45: White Blood Count 10.9, Red Blood Count 4.60, Hemoglobin 13.9, Hematocrit 41, Mean Corpuscular Volume 89, Mean Corpuscular Hemoglobin 30, Mean Corpuscular Hemoglobin Concent 34, Red Cell Distribution Width 11.8, Platelet Count 369, Mean Platelet Volume 9.1, Immature Granulocyte % (Auto) 0, Neutrophils (%) (Auto) 63, Lymphocytes (%) (Auto) 23, Monocytes (%) (Auto) 9, Eosinophils (%) (Auto) 4, Basophils (%) (Auto) 1, Neutrophils # (Auto) 6.8, Lymphocytes # (Auto) 2.6, Monocytes # (Auto) 1.0, Eosinophils # (Auto) 0.4H, Basophils # (Auto) 0.1, Immature Granulocyte # (Auto) 0.0, Erythrocyte Sedimentation Rate 36H, Sodium Level 137, Potassium Level 3.6, Chloride Level 101, Carbon Dioxide Level 25, Anion Gap 11, Blood Urea Nitrogen 9, Creatinine 0.84, Estimat Glomerular Filtration Rate 79, BUN/Creatinine Ratio 11, Glucose Level 125H, Calcium Level 10.0, Corrected Calcium 9.9, Magnesium Level 2.2, Total Bilirubin 0.5, Aspartate Amino Transf (AST/SGOT) 23, Alanine Aminotransferase (ALT/SGPT) 22, Alkaline Phosphatase 116, C-Reactive Protein High Sensitivity 6.13H, Total Protein 7.8, Albumin 4.1, Amylase Level 90, Lipase 58 03/17/22 17:51: Urine Color DARK YELLOW, Urine Clarity CLOUDY, Urine pH 6.0, Urine Specific Malo >=1.030, Urine Protein TRACEH, Urine Glucose (UA) NEGATIVE, Urine Ketones NEGATIVE, Urine Nitrite NEGATIVE, Urine Bilirubin 1+H, Urine Urobilinogen 0.2, Urine Leukocyte Esterase TRACEH, Urine RBC (Auto) 3+H, Urine RBC RARE, Urine WBC 10-25H, Urine Squamous Epithelial Cells 5-10, Urine Crystals NONE, Urine Bacteria TRACE, Urine Casts NONE, Urine Mucus SMALLH, Urine Culture Indicated YES 03/18/22 05:10: White Blood Count 6.9, Red Blood Count 3.76L, Hemoglobin 11.5, Hematocrit 35, Mean Corpuscular Volume 92, Mean Corpuscular Hemoglobin 31, Mean Corpuscular Hemoglobin Concent 33, Red Cell Distribution Width 11.9, Platelet Count 252, Mean Platelet Volume 10.2, Immature Granulocyte % (Auto) 0, Neutrophils (%) (Auto) 48, Lymphocytes (%) (Auto) 33, Monocytes (%) (Auto) 10, Eosinophils (%) (Auto) 8, Basophils (%) (Auto) 1, Neutrophils # (Auto) 3.3, Lymphocytes # (Auto) 2.3, Monocytes # (Auto) 0.7, Eosinophils # (Auto) 0.5H, Basophils # (Auto) 0.1, Immature Granulocyte # (Auto) 0.0, Sodium Level 138, Potassium Level 4.3, Chloride Level 110H, Carbon Dioxide Level 17L, Anion Gap 11, Blood Urea Nitrogen 7, Creatinine 0.81, Estimat Glomerular Filtration Rate 82, BUN/Creatinine Ratio 9, Glucose Level 165H, Calcium Level 8.6, Percent Immature Platelet Fraction 2.3 Assessment/Plan Assessment/Plan Assessment/Plan llq abdominal pain nausea diverticulitis possible microperforation/abscess sips of clears Iv fluids continue abx discussed conservative management at this time likely beneftit from colonoscopy once resolved. discussed surgical intervention if needed patient agrees with plan. BARRY RAE DO Mar 18, 2022 14:47
[2022-03-19] MEDS: D5 1/2 NS W/KCL 20 MEQ/L 1,000 ML IV SCH ×4 (00:52→22:28)
[2022-03-19] MEDS: PIPERACILLIN SODIUM/TAZOBACTAM 4.5 GM in NS (IVPB) 100 ML IV SCH ×3 (00:53→17:23)
[2022-03-19 03:31] VITALS: BP 107/53
[2022-03-19] MEDS: metroNIDAZOLE 500 MG/100 ML IVPB (PRE-MIX) IV SCH ×2 (05:42→19:34)
[2022-03-19 07:06] VITALS: BP 99/64
--- NOTE | 2022-03-19 09:15 | Progress Note - Surgery ---
Subjective Date Seen by a Provider: Mar 19, 2022 Time Seen by a Provider: 09:15 Subjective/Events-last exam Still with llq abdominal pain. Better thought some. Tolerating clears. Denies n/v fever sweats chills shortness of breath or chest pain at this time. Objective Exam Vital Signs Date Time Temp Pulse Resp B/P (MAP) Pulse Ox O2 Delivery O2 Flow Rate FiO2 03/19/22 07:06 36.7 68 18 99/64 (76) 97 Room Air 03/19/22 07:00 64 03/19/22 03:31 36.6 65 18 107/53 (71) 95 Room Air 03/19/22 01:00 60 03/18/22 23:29 36.2 83 18 108/52 (70) 96 Room Air 03/18/22 20:00 97 Room Air 03/18/22 19:52 36.7 87 18 115/67 (83) 98 Room Air 03/18/22 19:00 80 03/18/22 15:36 36.7 65 16 111/68 (82) 99 Room Air 03/18/22 13:00 72 03/18/22 11:41 36.4 67 18 101/65 (77) 98 Room Air I & O 03/19/22 07:00 Intake Total 2320 ml Output Total 3400 ml Balance -1080 ml Capillary Refill : Less Than 3 Seconds General Appearance: No Apparent Distress, WD/WN HEENT: PERRL/EOMI, Moist Mucous Membranes; No Scleral Icterus (L), No Scleral Icterus (R) Neck: Normal Inspection, Supple Respiratory: Chest Non Tender, No Accessory Muscle Use, No Respiratory Distress Cardiovascular: Regular Rate, Rhythm, No JVD Gastrointestinal: soft, tenderness (llq no guarding or rebounding, slightly improved from yesterday) Extremity: No Calf Tenderness, No Pedal Edema Neurologic/Psychiatric: Alert, Oriented x3, Normal Mood/Affect Skin: Normal Color, Warm/Dry Lymphatic: No Adenopathy Assessment/Plan Assessment/Plan Assessment/Plan llq abdominal pain nausea diverticulitis possible microperforation/abscess clears Iv fluids continue abx discussed conservative management at this time likely beneftit from colonoscopy once resolved. discussed surgical intervention if needed patient agrees with plan. BARRY RAE DO Mar 19, 2022 09:15
[2022-03-19 11:15] VITALS: BP 119/58
--- NOTE | 2022-03-19 14:38 | Progress Note - Hospitalist ---
Subjective HPI/CC On Admission Date Seen by Provider: Mar 19, 2022 Time Seen by Provider: 11:15 Pt is a 61yoCF with a PMH of diverticulitis who presented to the ER due to abdominal pain, nausea, and vomiting. She has been nasueated but has not vomited. She denies flatus but had a normal Bm yesterday morning. Her pain is worse in the lower and left side of her abdomen. She had a CT done which revealed diverticulitis and possible abscess or microperforation. I saw her this morning with Dr Ernandez. She remains quite tender but is hopeful to go home. Discussed management plan with her and she is agreeable to staying for further care. Subjective/Events-last exam She is still having some abdominal pain. She has been tolerating clears. It is not worsening her pain and she denies nausea. Objective Exam Vital Signs Vital Signs Date Time Temp Pulse Resp B/P (MAP) Pulse Ox O2 Delivery O2 Flow Rate FiO2 03/19/22 13:21 87 03/19/22 11:15 36.2 18 119/58 (78) 100 Room Air Capillary Refill : Less Than 3 Seconds General Appearance: No Apparent Distress Respiratory: Lungs Clear, No Respiratory Distress Cardiovascular: Regular Rate, Rhythm, No Murmur Gastrointestinal: Normal Bowel Sounds, Soft, Tenderness (LLQ) Extremity: Normal Inspection, No Pedal Edema Neurologic/Psychiatric: Alert, Normal Mood/Affect Skin: Normal Color, Warm/Dry Results/Procedures Lab Patient resulted labs reviewed. Imaging: Reviewed Imaging Report Assessment/Plan Assessment and Plan Assess & Plan/Chief Complaint Diverticulitis Surgery following Clears IV fluids Antibiotics Diagnosis/Problems Diagnosis/Problems (1) Acute diverticulitis Status: Acute DESHAUN MATA MD Mar 19, 2022 14:38
[2022-03-19 15:48] VITALS: BP 125/76
[2022-03-19 19:53] VITALS: BP 121/58
[2022-03-19 23:28] VITALS: BP 111/68
[2022-03-20] MEDS: D5 1/2 NS W/KCL 20 MEQ/L 1,000 ML IV SCH ×2 (01:28→17:01)
[2022-03-20] MEDS: PIPERACILLIN SODIUM/TAZOBACTAM 4.5 GM in NS (IVPB) 100 ML IV SCH ×3 (02:16→16:59)
[2022-03-20 03:31] VITALS: BP 99/60
[2022-03-20] MEDS: metroNIDAZOLE 500 MG/100 ML IVPB (PRE-MIX) IV SCH ×2 (06:01→19:49)
[2022-03-20 07:33] VITALS: BP 133/63
--- NOTE | 2022-03-20 09:01 | Progress Note ---
Subjective Subjective Date Seen by Provider: Mar 20, 2022 Time Seen by Provider: 08:20 Pt is a 61 y/o female who is known to me from clinic. She reports that her abdominal pain is still persistent, but improved. She feels that she is tolerating her clear diet without issue. She is passing gas, feels slightly bloated. Review of Systems General: No Chills, No Fatigue, No Malaise Pulmonary: No Dyspnea Gastrointestinal: Abdominal Pain; No: Nausea Neurological: No: Weakness, Confusion All Other Systems Reviewed All Other Systems Reviewed: Yes (Negative excepted noted.) Objective Exam Vital Signs Vital Signs Date Time Temp Pulse Resp B/P (MAP) Pulse Ox O2 Delivery O2 Flow Rate FiO2 03/20/22 08:46 Room Air 03/20/22 07:33 36.6 76 18 133/63 (86) 94 Room Air 03/20/22 07:14 95 03/20/22 03:31 36.7 65 16 99/60 (73) 97 Room Air 03/20/22 01:00 67 03/19/22 23:28 36.5 71 16 111/68 (82) 96 Room Air 03/19/22 20:00 Room Air 03/19/22 19:53 36.4 72 16 121/58 (79) 99 Room Air 03/19/22 19:00 74 03/19/22 15:48 36.5 69 18 125/76 (92) 98 Room Air 03/19/22 13:21 87 03/19/22 11:15 36.2 70 18 119/58 (78) 100 Room Air I & O 03/20/22 07:00 Intake Total 2240 ml Output Total 4900 ml Balance -2660 ml General Appearance: No Apparent Distress, WD/WN HEENT: No Scleral Icterus (L), No Scleral Icterus (R) Neck: Normal Inspection Respiratory: Chest Non Tender, Lungs Clear, Normal Breath Sounds, No Accessory Muscle Use, No Respiratory Distress Cardiovascular: Regular Rate, Rhythm, No Murmur Gastrointestinal: Normal Bowel Sounds, Soft, Tenderness (mild/mod tenderness to palpation in LLQ) Extremity: Normal Inspection, No Pedal Edema Neurologic/Psychiatric: Alert, Oriented x3, Normal Mood/Affect Skin: Normal Color, Warm/Dry Lymphatic: No Adenopathy Results Lab Microbiology 03/17/22 Urine Culture - Final, Complete NO GROWTH Assessment/Plan Assessment/Plan Admission Dx Diverticulitis with microperforation Assessment and Plan Sigmoid Diverticulitis with microperforation Elevated glucose Abdominal pain LLQ Sigmoid Diverticulitis with microperforation - pt on Zosyn and flagyl - consult to General surgeon - Dr. Ernandez - defer final plan to Dr. Ernandez - no plans for surgical intervention at this time. - continue with clear liquids at this time. - monitor for increase in abdominal pain Elevated glucose - check Hgba1c today Abdominal pain LLQ - prn fentanyl iv Gi prophylaxis - with ppi dvt prophylaxis with scd's TRESA PITTS MD Mar 20, 2022 09:01
[2022-03-20 09:32] LABS: HEMATOCRIT 39 % (35-52); HEMOGLOBIN 12.5 g/dL (11.5-16.0); MEAN CORPUSCULAR HEMOGLOBIN 30 pg (25-34); MEAN CORPUSCULAR HGB CONC 32 g/dL (32-36); MEAN CORPUSCULAR VOLUME 92 fL (80-99); MEAN PLATELET VOLUME 9.2 fL (9.0-12.2); PLATELET COUNT 345 10^3/uL (130-400)
[2022-03-20 09:48] LABS: CALCIUM 9.3 MG/DL (8.5-10.1); CREATININE SERUM 0.82 MG/DL (0.60-1.30)
[2022-03-20] MEDS: PANTOPRAZOLE 40 MG (PROTONIX) TAB PO SCH (09:54)
[2022-03-20 11:17] VITALS: BP 112/73
[2022-03-20] MEDS ORDERED: NAPR220T66 PO (12:50)
[2022-03-20] MEDS ORDERED: AMOX1TAB11 PO (12:50)
[2022-03-20 16:07] VITALS: BP 139/78
--- NOTE | 2022-03-20 17:11 | Progress Note - Surgery ---
Subjective Date Seen by a Provider: Mar 20, 2022 Time Seen by a Provider: 13:21 Subjective/Events-last exam Feeling better. Still with llq abdominal pain, but improved. Tolerating clears. Feels slightly bloated. Denies n/v fever sweats chills shortness of breath or chest pain. Objective Exam Vital Signs Date Time Temp Pulse Resp B/P (MAP) Pulse Ox O2 Delivery O2 Flow Rate FiO2 03/20/22 16:07 36.4 70 18 139/78 (98) 100 Room Air 03/20/22 11:17 36.5 67 18 112/73 (86) 99 Room Air 03/20/22 08:46 Room Air 03/20/22 07:33 36.6 76 18 133/63 (86) 94 Room Air 03/20/22 07:14 95 03/20/22 03:31 36.7 65 16 99/60 (73) 97 Room Air 03/20/22 01:00 67 03/19/22 23:28 36.5 71 16 111/68 (82) 96 Room Air 03/19/22 20:00 Room Air 03/19/22 19:53 36.4 72 16 121/58 (79) 99 Room Air 03/19/22 19:00 74 I & O 03/20/22 07:00 Intake Total 2240 ml Output Total 4900 ml Balance -2660 ml Capillary Refill : Less Than 3 Seconds General Appearance: No Apparent Distress, WD/WN HEENT: PERRL/EOMI, Normal ENT Inspection; No Scleral Icterus (L), No Scleral Icterus (R) Neck: Normal Inspection, Non Tender Respiratory: Chest Non Tender, No Accessory Muscle Use, No Respiratory Distress Cardiovascular: Regular Rate, Rhythm, No Murmur Gastrointestinal: soft, tenderness (llq no guarding or rebounding, continues to improve) Extremity: Normal Inspection, No Pedal Edema Neurologic/Psychiatric: Alert, Oriented x3, Normal Mood/Affect Skin: Normal Color, Warm/Dry Lymphatic: No Adenopathy Results Lab Laboratory Tests 03/20/22 09:05: White Blood Count 5.0, Red Blood Count 4.22, Hemoglobin 12.5, Hematocrit 39, Mean Corpuscular Volume 92, Mean Corpuscular Hemoglobin 30, Mean Corpuscular Hemoglobin Concent 32, Red Cell Distribution Width 11.9, Platelet Count 345, Mean Platelet Volume 9.2, Sodium Level 141, Potassium Level 4.0, Chloride Level 110H, Carbon Dioxide Level 23, Anion Gap 8, Blood Urea Nitrogen 2L, Creatinine 0.82, Estimat Glomerular Filtration Rate 81, BUN/Creatinine Ratio 2, Glucose Level 130H, Calcium Level 9.3 Microbiology 03/17/22 Urine Culture - Final, Complete NO GROWTH Assessment/Plan Assessment/Plan Assessment/Plan Sigmoid Diverticulitis with microperforation Abdominal pain LLQ Zosyn Flagyl- Convert to augmentin for total of 10 days abx. Will need colonoscopy in 6-8 weeks after pain resolved. If well tomorrow can dc home. Slowly advance diet, can be advanced at home. IF pain, back off to clears again. Gi prophylaxis - with ppi dvt prophylaxis with scd's Patient agrees with plan. BARRY RAE DO Mar 20, 2022 17:11
[2022-03-20 19:05] VITALS: BP 136/70
[2022-03-21 00:19] VITALS: BP 107/61
[2022-03-21] MEDS: PIPERACILLIN SODIUM/TAZOBACTAM 4.5 GM in NS (IVPB) 100 ML IV SCH ×2 (03:23→09:26)
[2022-03-21] MEDS: D5 1/2 NS W/KCL 20 MEQ/L 1,000 ML IV SCH (03:23)
[2022-03-21 07:48] VITALS: BP 119/77
[2022-03-21] MEDS: PANTOPRAZOLE 40 MG (PROTONIX) TAB PO SCH (07:59)
[2022-03-21] MEDS: metroNIDAZOLE 500 MG/100 ML IVPB (PRE-MIX) IV SCH (07:59)
--- NOTE | 2022-03-21 09:08 | Discharge Summary ---
Diagnosis/Chief Complaint Date of Admission Mar 17, 2022 at 19:04 Date of Discharge Discharge Summary Discharge Physical Examination Allergies: Coded Allergies: morphine (Unverified Allergy, Mild, 03/28/09) Vitals & I&Os Vital Signs Date Time Temp Pulse Resp B/P (MAP) Pulse Ox O2 Delivery O2 Flow Rate FiO2 03/21/22 07:48 36.7 74 20 119/77 (91) Room Air 03/21/22 00:19 97 Discharge Instructions to patient/family Please see electronic discharge instructions given to patient. Discharge Medications Reviewed and agree with Discharge Medication list on patient's Discharge Instruction sheet TRESA PITTS MD Mar 21, 2022 09:08
[2022-03-21] MEDS ORDERED: LACT1CAP87 PO (09:11)
[2022-03-21] MEDS ORDERED: AMOX1TAB11 PO (09:11)
--- NOTE | 2022-03-21 09:14 | Discharge Inst-Simple/Standard ---
Discharge Inst-Standard Reconcile Patient Problems Problems Reviewed?: Yes Discharge Medications New, Converted or Re-Newed RX: Transmitted to Pharmacy Patient Instructions/Follow Up Plan of Care/Instructions/FU: [facility] wk [facility] [address] escobar Activity as Tolerated: Yes Discharge Diet: Other Diet (full liquid diet saturday/, add soft foods saturday and slowly advance as tolerated thereafter) Return to [facility] For: any worsening abdominal pain, bloating that is extreme or bloody stools or worsening fever or other lifethreatening illness or injury Medication List: Active Scripts Active Acidophilus Lactobacilli (Lactobacillus Acidophilus) 500 Million Cell Capsule 1 Each PO TIDAC Amox Tr-K Clv 500-125 mg Tab (Amoxicillin/Potassium Clav) 500 Mg-125 Mg Tablet 1 Each PO TID 7 Days take this augmentin instead of the supply at home Reported Aleve (Naproxen Sodium) 220 Mg Tablet 440 Mg PO Q8H PRN TAKES 2 (220MG) TABS My orders: Orders - TRESA PITTS MD Attending Discharge Inpt/Inobs (03/21/22 09:09) TRESA PITTS MD Mar 21, 2022 09:14
[2022-03-21 11:10] VITALS: BP 119/77
--- NOTE | 2022-03-21 11:15 | Progress Note - Surgery ---
Subjective Date Seen by a Provider: Mar 21, 2022 Time Seen by a Provider: 11:13 Subjective/Events-last exam feeling well. no pain now in llq. tolerating diet. no n/v fever sweats chills shortness of breath or chest pain wanting to go home. Objective Exam Vital Signs Date Time Temp Pulse Resp B/P (MAP) Pulse Ox O2 Delivery O2 Flow Rate FiO2 03/21/22 08:00 Room Air 03/21/22 07:48 36.7 74 20 119/77 (91) Room Air 03/21/22 00:19 36.3 74 18 107/61 (76) 97 Room Air 03/20/22 20:39 Room Air 03/20/22 19:05 36.4 76 18 136/70 (92) 100 Room Air 03/20/22 16:07 36.4 70 18 139/78 (98) 100 Room Air 03/20/22 11:17 36.5 67 18 112/73 (86) 99 Room Air I & O 03/21/22 07:00 Intake Total 3340 ml Output Total 4300 ml Balance -960 ml Capillary Refill : Less Than 3 Seconds General Appearance: No Apparent Distress, WD/WN HEENT: PERRL/EOMI, Normal ENT Inspection; No Scleral Icterus (L), No Scleral Icterus (R) Neck: Normal Inspection, Non Tender Respiratory: Chest Non Tender, No Accessory Muscle Use, No Respiratory Distress Cardiovascular: Regular Rate, Rhythm, No JVD Gastrointestinal: soft; No tenderness (llq no guarding or rebounding, improved) Extremity: Normal Inspection, No Pedal Edema Neurologic/Psychiatric: Alert, Oriented x3, Normal Mood/Affect Skin: Normal Color, Warm/Dry Lymphatic: No Adenopathy Results Lab Microbiology 03/17/22 Urine Culture - Final, Complete NO GROWTH Assessment/Plan Assessment/Plan Assessment/Plan Sigmoid Diverticulitis with microperforation Abdominal pain LLQ Zosyn Flagyl- Convert to augmentin for total of 10 days abx. Will need colonoscopy in 6-8 weeks after pain resolved. If well tomorrow can dc home. Slowly advance diet, can be advanced at home. IF pain, back off to clears again. Wanting to go home Agree with DC home Will follow up outpatient Patient agrees with plan. BARRY RAE DO Mar 21, 2022 11:15
== END 2022-03-21 11:10 | disposition home or self-care (01) | DRG 392 ==
LOC: EDUNIT# 17:37 → ER 17:40 → 4TH 19:04
PROVIDERS: ADMIT Family Medicine; ATTEND Family Medicine
DX: K57.20 Diverticulitis of large intestine with perforation and abscess without bleeding (principal); Z66 Do not resuscitate; Z88.5 Allergy status to narcotic agent
CPT/HCPCS: 36415; 74022; 74177; 80048; 80053; 81000; 82150; 83036; 83690; 83735; 85025; 85027; 85652; 86141; 87088; 96361; 96365; 96367; 96368; 96375

== ENCOUNTER 2022-05-23 05:36 | Outpatient (CLI) | payer OTHER ==
[~2022-05-23] VITALS: Ht 167.6 cm; Wt 62.1 kg
[~2022-05-23 05:36] MED LIST changes: +AMOX1TAB11 PO; +LACT1CAP87 PO; +NAPR220T66 PO
== END 2022-05-23 16:21 | disposition home or self-care (01) ==
LOC: PREOP 05:36
PROVIDERS: ATTEND Surgery
DX: Z01.818 Encounter for other preprocedural examination (principal)

== ENCOUNTER 2022-06-05 09:56 | Day surgery (SDC) | payer OTHER ==
[~2022-06-05] VITALS: Ht 167.6 cm; Wt 62.1 kg
[2022-06-05] MEDS ORDERED: LACTATED RINGERS 1,000 ML IV STA (10:06)
[2022-06-05 10:12] VITALS: BP 121/51
[2022-06-05] MEDS ORDERED: PROPOFOL INJECTION 50 ML IV ONE (11:00)
--- NOTE | 2022-06-05 11:19 | Progress Note-Post Operative ---
Post-Operative Progess Note Surgeon (s)/Glue Cook (s) Surgeon BARRY RAE DO Glue Cook: na Pre-Operative Diagnosis h/o diverticulitis Post-Operative Diagnosis Diverticulosis Procedure & Operative Findings Date of Procedure 06/05/22 Procedure Performed/Findings Colonoscopy Anesthesia Type per STITCHER OPERATOR Estimated Blood Loss Estimated blood loss (mL): none Specimens/Packing Specimens Removed none BARRY RAE DO Jun 05, 2022 11:19
--- NOTE | 2022-06-05 11:21 | Discharge Inst-Simple/Standard ---
Discharge Inst-Standard Patient Instructions/Follow Up Plan of Care/Instructions/FU: 5 years [facility] Activity as Tolerated: Yes Discharge Diet: Regular Diet (high fiber) BARRY RAE DO Jun 05, 2022 11:21
[2022-06-05 11:23] VITALS: BP 112/56
[2022-06-05 11:28] VITALS: BP 101/51
[2022-06-05 11:35] VITALS: BP 109/56
[2022-06-05 12:00] VITALS: BP 109/56
--- NOTE | 2022-06-05 12:44 | Anesthesia-General Post-Op ---
MAC Patient Condition Mental Status/LOC: Same as Preop Cardiovascular: Satisfactory Nausea/Vomiting: Absent Respiratory: Satisfactory Pain: Controlled Complications: Absent Post Op Complications Complications None Follow Up Care/Instructions Patient Instructions None needed. Anesthesiology Discharge Order Discharge Order Patient is doing well, no complaints, stable vital signs, no apparent adverse anesthesia problems. No complications reported per nursing. PILAR RIBERA CRNA Jun 05, 2022 12:44
--- NOTE | 2022-06-05 18:33 | OPERATIVE REPORT ---
DATE OF SERVICE: 06/05/2022 PREOPERATIVE DIAGNOSIS: History of diverticulitis. POSTOPERATIVE DIAGNOSIS: Diverticulosis. PROCEDURE: Colonoscopy. SURGEON: Barry Ernandez DO ANESTHESIA: Per BREAK UP WORKER. ESTIMATED BLOOD LOSS: None. COMPLICATIONS: None. INDICATIONS: The patient is a 62-year-old female with recent history of diverticulitis. She understands the risks and benefits of procedure and wished to proceed. Consent was signed in chart. DESCRIPTION OF PROCEDURE: The patient was taken to the endoscopy suite, placed in left lateral recumbent position. Timeout was performed. Digital rectal exam was performed. No palpable polyps, masses or ulcerations. Scope was inserted in the rectum, advanced all the way to the cecum with minimal difficulty. Prep was adequate. Scope was slowly retracted back. No polyps, masses or ulcerations within the cecum, ascending, transverse, descending and sigmoid colon, noting a moderate amount of diverticulosis of the sigmoid colon. Once in the rectum, scope was retroflexed, noting no other pathology. Scope was returned to its normal position, slowly withdrawn until completely removed. The patient tolerated the procedure well without complications, taken to recovery in stable condition. RECOMMENDATIONS: The patient will need repeat colonoscopy in 10 years unless family history of colon cancer, which was then be 5 years or if the patient has a history of polyps, which will then be 5 years. We also recommend high fiber diet due to the diverticulosis. Any problems prior to be seen at that time. Job ID: [id number] DocumentID: [id number] Dictated Date: 06/05/2022 11:21:13 Isotope Hydrologist Date: 06/05/2022 18:31:00 Dictated By: BARRY ERNANDEZ DO
== END 2022-06-05 12:15 | disposition home or self-care (01) ==
LOC: ENDO 09:56
PROVIDERS: ATTEND Surgery
DX: Z12.11 Encounter for screening for malignant neoplasm of colon (principal); K57.30 Diverticulosis of large intestine without perforation or abscess without bleeding

== ENCOUNTER → 2023-01-31 | Outpatient (CLI) | payer OTHER ==
--- NOTE | 2023-01-31 16:09 | Diagnostic Imaging Report ---
INDICATION: Routine screening. Comparison is made with prior mammogram from 12/22/2021 and 10/30/2019. 2-D and 3-D bilateral screening mammography was performed with CAD. Both breasts are heterogeneously dense, limiting the sensitivity of mammography. No mass or malignant-appearing microcalcifications are identified. Axillae are unremarkable. IMPRESSION: No mammographic features suspicious for malignancy are identified. ACR BI-RADS Category 1: Negative. Result letter will be mailed to the patient. Note: At least 10% of breast cancer is not imaged by mammography. BI-RADS Category 1 Dictated by: Dictated on workstation # [id number]
== END ==
LOC: RAD 14:45
PROVIDERS: ATTEND Nurse Practitioner Family
DX: Z12.31 Encounter for screening mammogram for malignant neoplasm of breast (principal)
CPT/HCPCS: 77063; 77067